=== PATIENT | female | born 1970 | race Hispanic/Latino ===

== ENCOUNTER 2021-04-16 10:30 | Emergency (ER) | payer SELFPAY ==
[2021-04-16 13:22] LABS: SARS-COV-2 RT PCR NEGATIVE (NEGATIVE)
[2021-04-16] MEDS ORDERED: METOCLOPRAMIDE 10 MG/2mL INJ ONE (13:41)
[2021-04-16] MEDS ORDERED: DIPHENHYDRAMINE 50 MG/ML VIAL ONE (13:42)
[2021-04-16] MEDS ORDERED: KETOROLAC 30 MG/ML INJ ONE (13:42)
[2021-04-16] MEDS ORDERED: NA CHLORIDE 0.9% 1,000 ML ONE (13:42)
--- NOTE | 2021-04-16 14:13 | EDPHYS ---
Physician Documentation [facility] Name: Rosa Isela Resendiz Age: 50 yrs Sex: Female : 1970 Arrival Date: 04/16/2021 Time: 10:32 Bed 10 Private MD: ED Physician Clif Barahona HPI: 04/16 13:50 This 50 yrs old Female presents to ER via Ambulatory with complaints of kb Headache. 13:50 The patient complains of pain to the forehead. The patient describes the headache as kb throbbing. Onset: The symptoms/episode began/occurred 3 day(s) ago. Associated signs and symptoms: Pertinent positives: bodyaches, cough. Severity of symptoms: At its worst the pain was moderate, in the emergency department the pain is unchanged. Headache History: The patient has had previous headaches and this one is similar to previous episodes. The symptoms are alleviated by nothing. the symptoms are aggravated by nothing. The patient has experienced similar episodes in the past. The patient has not recently seen a physician. Pt reports migraine, bodyaches and cough for 3 days. States she has a history of migraines and this one feels similar. . Historical: - Allergies: 10:58 No Known Allergies; ll1 - Home Meds: 13:44 Imitrex Oral [Active]; jh5 - PMHx: 10:58 Anxiety; Depression; Migraines; ll1 - PSHx: 10:58 section; ll1 - Immunization history:: Client reports receiving the 2nd dose of the Covid vaccine, Flu vaccine status is unknown. - Social history:: Smoking status: Patient reports the use of cigarette tobacco products, smokes one-half pack cigarettes per day. ROS: 14:07 Cardiovascular: Negative for chest pain, palpitations, and edema. kb 14:07 Constitutional: Positive for body aches, Negative for chills, fatigue, fever, malaise, poor PO intake, weight loss. 14:07 Respiratory: Positive for cough, Negative for dyspnea on exertion, hemoptysis, orthopnea, pleurisy, shortness of breath, sputum production, wheezing. 14:07 Neuro: Positive for headache. 14:07 All other systems are negative. Exam: 14:12 Constitutional: This is a well developed, well nourished patient who is awake, alert, kb and in no acute distress. Head/Face: Normocephalic, atraumatic. ENT: Moist Mucous membranes Cardiovascular: Regular rate and rhythm with a normal S1 and S2. No gallops, murmurs, or rubs. No pulse deficits. Respiratory: Respirations even and unlabored. No increased work of breathing. Talking in full sentences Skin: Warm, dry with normal turgor. Normal color. MS/ Extremity: Pulses equal, no cyanosis. Neurovascular intact. Full, normal range of motion. Neuro: Awake and alert, GCS 15, oriented to person, place, time, and situation. Moves all extremities. Normal gait. Psych: Awake, alert, with orientation to person, place and time. Behavior, mood, and affect are within normal limits. Vital Signs: 10:56 BP 151 / 90; Pulse 78; Resp 15; Temp 97.8; Pulse Ox 100% ; Weight 72.57 kg; Height 5 ll3 ft. 0 in. (152.40 cm); Pain 10/10; 12:32 BP 137 / 81; Pulse 64; Resp 16; Pulse Ox 100% on R/A; ll3 13:40 BP 132 / 80; Pulse 64; Resp 15; Pulse Ox 100% on R/A; ll3 10:56 Body Mass Index 31.25 (72.57 kg, 152.40 cm) ll3 Wilkinson Coma Score: 14:09 Eye Response: spontaneous(4). Verbal Response: oriented(5). Motor Response: obeys kb commands(6). Total: 15. MDM: 11:01 Patient medically screened. kb 14:09 Data reviewed: vital signs, nurses notes. Counseling: I had a detailed discussion with tomas the patient and/or guardian regarding: the historical points, exam findings, and any diagnostic results supporting the discharge/admit diagnosis, lab results, the need for outpatient follow up, a family practitioner, to return to the emergency department if symptoms worsen or persist or if there are any questions or concerns that arise at home. 04/16 11:04 Order name: COVID-19/FLU A+B (Document "Date of Onset" if Symptomatic); Complete Time: kb 13:23 04/16 11:26 Order name: Labs - recollect needed: recollect covid, specimen not labeled; Complete bd Time: 12:24 04/16 13:21 Order name: IV Start; Complete Time: 13:28 kb Administered Medications: 13:48 Drug: NS 0.9% 1000 ml Route: IV; Rate: 1000 ml; Site: right antecubital; ll3 13:50 Drug: Benadryl (diphenhydrAMINE) 12.5 mg Route: IVP; Site: right antecubital; ll3 13:52 Drug: Ketorolac 15 mg Route: IVP; Site: right antecubital; ll3 13:53 Drug: Reglan (metoCLOPramide) 10 mg Route: IVP; Site: right antecubital; ll3 Disposition: 15:27 Co-signature as Attending Physician, Clif Barahona MD I agree with the assessment and rn plan of care. Attestation: The patient's history, exam findings, diagnostics, and a summary of any interventions or procedures was reviewed in detail with Venecia LAMBERT. Chart complete. Disposition Summary: 04/16/21 14:12 Discharge Ordered Location: Home kb Condition: Stable kb Diagnosis - Migraine without aura, not intractable kb Followup: kb - With: Emergency Department - When: As needed - Reason: Worsening of condition Followup: kb - With: Private Physician - When: 2 - 3 days - Reason: Recheck today's complaints, Continuance of care, Re-evaluation by your physician Discharge Instructions: - Discharge Summary Sheet kb - Migraine Headache, [id number] kb Forms: - Medication Reconciliation Form kb - Thank You Letter kb - Antibiotic Education kb - Prescription Opioid Use kb Signatures: Dispatcher [employer] EDVenecia Smith FNP-C FNP-Bushra Quinonez Roman, MD MD rn Lewis, Lynsay RN RN ll1 Altagracia Song RN RN jh5 Freddie Tsang RN RN ll3
--- NOTE | 2021-04-16 14:13 | ER ---
Nurse's Notes [facility] Name: Rosa Isela Resendiz Age: 50 yrs Sex: Female : 1970 Arrival Date: 04/16/2021 Time: 10:32 Bed 10 Private MD: Diagnosis: Migraine without aura, not intractable Presentation: 04/16 10:56 Chief complaint: Patient states: KEYS, body aches, cough for 3 days. Coworkers have ll1 covid. Coronavirus screen: Vaccine status: Patient reports receiving the 2nd dose of the covid vaccine. Client denies travel out of the [place] in the last 14 days. congestion, cough unrelated to allergies, fatigue, headache, muscle pain, nausea, Client presents with at least one sign or symptom that may indicate coronavirus-19. Standard/surgical mask placed on the client. Ebola Screen: Patient denies travel to an Ebola-affected area in the 21 days before illness onset. Initial Sepsis Screen: Does the patient meet any 2 criteria? No. Patient's initial sepsis screen is negative. Does the patient have a suspected source of infection? Yes: Productive cough/pneumonia. Risk Assessment: Do you want to hurt yourself or someone else? Patient reports no desire to harm self or others. Onset of symptoms was April 14, 2021. 10:56 Method Of Arrival: Ambulatory ll1 10:56 Acuity: MITCH 4 ll1 Triage Assessment: 12:24 Headache History: The patient has had previous headaches and this one is similar to ll3 previous episodes. General: Appears in no apparent distress. uncomfortable, Behavior is calm, cooperative, anxious. Pain: Complains of pain in Whole body Pain began 2-3 days ago. Also complains of nausea, sleeplessness. Historical: - Allergies: 10:58 No Known Allergies; ll1 - Home Meds: 13:44 Imitrex Oral [Active]; jh5 - PMHx: 10:58 Anxiety; Depression; Migraines; ll1 - PSHx: 10:58 section; ll1 - Immunization history:: Client reports receiving the 2nd dose of the Covid vaccine, Flu vaccine status is unknown. - Social history:: Smoking status: Patient reports the use of cigarette tobacco products, smokes one-half pack cigarettes per day. Screenin:02 Abuse screen: Denies threats or abuse. Nutritional screening: No deficits noted. ll3 Tuberculosis screening: No symptoms or risk factors identified. 13:44 Fall Risk None identified. 5 Assessment: 10:56 General: See triage. ll3 11:02 Pain: Complains of pain in Whole body Pain currently is 10 out of 10 on a pain scale. ll3 Neuro: Level of Consciousness is awake, alert, obeys commands, Oriented to person, place, time, situation, Gait is steady, Speech is normal. Respiratory: Respiratory effort is even, unlabored, Respiratory pattern is regular, symmetrical. Derm: Skin is pink, warm \T\ dry. 12:24 Reassessment: Patient appears in no apparent distress at this time. No changes from ll3 previously documented assessment. Patient and/or family updated on plan of care and expected duration. Pain level reassessed. Patient is alert, oriented x 3, equal unlabored respirations, skin warm/dry/pink. 13:30 Reassessment: Patient appears in no apparent distress at this time. No changes from ll3 previously documented assessment. Patient and/or family updated on plan of care and expected duration. Pain level reassessed. Patient is alert, oriented x 3, equal unlabored respirations, skin warm/dry/pink. Vital Signs: 10:56 BP 151 / 90; Pulse 78; Resp 15; Temp 97.8; Pulse Ox 100% ; Weight 72.57 kg; Height 5 ll3 ft. 0 in. (152.40 cm); Pain 10/10; 12:32 BP 137 / 81; Pulse 64; Resp 16; Pulse Ox 100% on R/A; ll3 13:40 BP 132 / 80; Pulse 64; Resp 15; Pulse Ox 100% on R/A; ll3 10:56 Body Mass Index 31.25 (72.57 kg, 152.40 cm) ll3 Maryann Coma Score: 14:09 Eye Response: spontaneous(4). Verbal Response: oriented(5). Motor Response: obeys kb commands(6). Total: 15. ED Course: 10:32 Patient arrived in ED. mr 10:58 Triage completed. ll1 10:59 Arm band placed on. ll1 11:01 Freddie Tsang RN is Primary Nurse. ll3 11:01 Venecia Kaba FNP-C [facility]. kb 11:01 Clif Barahona MD is Attending Physician. kb 11:02 Patient has correct armband on for positive identification. Bed in low position. Call ll3 light in reach. 13:44 Inserted saline lock: 20 gauge in right antecubital area, using aseptic technique. [facility] 13:44 No provider procedures requiring assistance completed. 5 Administered Medications: 13:48 Drug: NS 0.9% 1000 ml Route: IV; Rate: 1000 ml; Site: right antecubital; ll3 13:50 Drug: Benadryl (diphenhydrAMINE) 12.5 mg Route: IVP; Site: right antecubital; ll3 13:52 Drug: Ketorolac 15 mg Route: IVP; Site: right antecubital; ll3 13:53 Drug: Reglan (metoCLOPramide) 10 mg Route: IVP; Site: right antecubital; ll3 Outcome: 14:12 Discharge ordered by MD. kb 14:21 Patient left the ED. [facility] Signatures: Venecia Kaba, PETRA PAGE-La Olsen mr Carlos Kuhn, GARCIA RN ll1 Altagracia Song, GARCIA RN 5 Freddie Tsang, GARCIA RN ll3 Corrections: (The following items were deleted from the chart) 11:32 10:56 Resp 18bpm; Temp 97.8F; 72.57 kg; Height 5 ft. 0 in.; BMI: 31.2; Pain 10/10; ll1 ll3
[2021-04-16 14:57] VITALS: TEMP 97.8; O2SAT 100
[2021-04-16 15:01] VITALS: BP 132/80
== END 2021-04-16 14:21 | disposition home or self-care (01) ==
LOC: ER 10:30
DX: G43.009 Migraine without aura, not intractable, without status migrainosus (principal); Z20.822 Contact with and (suspected) exposure to COVID-19
CPT/HCPCS: 0240U; 96374; 96375; 99283; J1200; J2765; J7030

== ENCOUNTER 2022-03-05 12:02 | Emergency (ER) | payer SELFPAY ==
[2022-03-05] MEDS ORDERED: KETOROLAC 30 MG/ML INJ ONE (12:26)
[2022-03-05] MEDS ORDERED: HYDROCODONE/APAP 10/325 TAB ONE (13:24)
--- NOTE | 2022-03-05 13:40 | RAD REPORT ---
EXAM DESCRIPTION: RAD - Femur Right - 03/05/2022 1:18 pm CLINICAL HISTORY: PAIN COMPARISON: No comparisons FINDINGS: Soft tissue prominence is seen along the lateral thigh. No fracture or dislocation.
--- NOTE | 2022-03-05 13:56 | EDPHYS ---
Physician Documentation [facility] Name: Rosa Isela Resendiz Age: 51 yrs Sex: Female : 1970 Arrival Date: 03/05/2022 Time: 12:05 Bed 10 Private MD: ED Physician Lucio Colindres HPI: 03/05 13:54 This 51 yrs old Female presents to ER via Ambulatory with complaints of Leg kb Pain. 13:54 The patient presents with pain. The complaints affect the lateral aspect of right kb thigh. Context: The problem was sustained at home, the patient can fully bear weight, the patient is able to ambulate. Onset: The symptoms/episode began/occurred 3 day(s) ago. Modifying factors: The symptoms are alleviated by nothing. the symptoms are aggravated by weight bearing. Associated signs and symptoms: The patient has no apparent associated signs or symptoms. Treatment prior to arrival includes: no previous treatment. Severity of symptoms: At their worst the symptoms were mild, moderate, in the emergency department the symptoms are unchanged. The patient has not experienced similar symptoms in the past. The patient has not recently seen a physician. Pt reports she was getting up from the couch on Friday evening and felt a pull/spasm in right thigh. Reports pain with ambulation since then. Denies tenderness, does not hurt at rest. 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 - Social history:: Smoking status: Patient reports the use of cigarette tobacco products, smokes one-half pack cigarettes per day, Patient/guardian denies using alcohol. ROS: 13:53 Constitutional: Negative for fever, chills, and weight loss. kb 13:53 MS/extremity: Positive for pain, of the lateral aspect of right thigh. 13:53 All other systems are negative. Exam: 13:52 Constitutional: This is a well developed, well nourished patient who is awake, alert, kb and in no acute distress. Head/Face: Normocephalic, atraumatic. ENT: Moist Mucous membranes Cardiovascular: Regular rate and rhythm with a normal S1 and S2. No gallops, murmurs, or rubs. No pulse deficits. Respiratory: Respirations even and unlabored. No increased work of breathing. Talking in full sentences Abdomen/GI: Soft, non-tender. No distention Skin: Warm, dry with normal turgor. Normal color. Neuro: Awake and alert, GCS 15, oriented to person, place, time, and situation. Moves all extremities. Normal gait. Psych: Awake, alert, with orientation to person, place and time. Behavior, mood, and affect are within normal limits. 13:52 Musculoskeletal/extremity: Extremities: grossly normal except: noted in the lateral aspect of right thigh: pain, ROM: intact in all extremities, Circulation is intact in all extremities. Sensation intact. Weight bearing: able to fully bear weight. Vital Signs: 12:12 BP 181 / 99; Pulse 89; Resp 18; Temp 98.6(O); Pulse Ox 99% on R/A; Weight 72.57 kg; ld1 Height 5 ft. 0 in. (152.40 cm); Pain 8/10; 12:30 BP 147 / 83; Pulse 83; Resp 18; Pulse Ox 100% on R/A; em6 13:29 BP 136 / 82; Pulse 63; Resp 18; Pulse Ox 98% on R/A; em6 14:09 BP 132 / 86; Pulse 66; Resp 18; Pulse Ox 98% on R/A; em6 12:12 Body Mass Index 31.25 (72.57 kg, 152.40 cm) ld1 MDM: 12:06 Patient medically screened. kb 13:52 Data reviewed: vital signs, nurses notes. Data interpreted: Pulse oximetry: on room air kb is 98 %. Interpretation: normal. Counseling: I had a detailed discussion with the patient and/or guardian regarding: the historical points, exam findings, and any diagnostic results supporting the discharge/admit diagnosis, radiology results, the need for outpatient follow up, a family practitioner, to return to the emergency department if symptoms worsen or persist or if there are any questions or concerns that arise at home. 03/05 12:13 Order name: Femur Right XRAY; Complete Time: 13:45 kb Administered Medications: 12:30 Drug: Ketorolac 30 mg Route: IM; Site: right deltoid; em6 13:00 Follow up: Response: No adverse reaction em6 13:29 Drug: [place] (HYDROcodone-acetaminophen) 10 mg-325 mg 1 tabs Route: PO; em6 14:00 Follow up: Response: No adverse reaction em6 Disposition: 18:04 Co-signature as Attending Physician, Venecia LAMBERT Attestation: The patient's [facility] history, exam findings, diagnostics, and a summary of any interventions or procedures was reviewed in detail with Venecia LAMBERT. Disposition Summary: 03/05/22 13:55 Discharge Ordered Location: Home kb Condition: Stable kb Diagnosis - Strain of other specified muscles, fascia and tendons at thigh level, right thigh kb Followup: kb - With: Emergency Department - When: As needed - Reason: Worsening of condition Followup: kb - With: Private Physician - When: 2 - 3 days - Reason: Recheck today's complaints, Continuance of care, Re-evaluation by your physician Discharge Instructions: - Discharge Summary Sheet kb - Hamstring Strain kb - Muscle Strain, [id number] kb Forms: - Medication Reconciliation Form kb - Thank You Letter kb - Antibiotic Education kb - Prescription Opioid Use kb Prescriptions: - Ibuprofen 600 mg Oral Tablet - take 1 tablet by ORAL route every 6 hours As needed take with food; 30 tablet; kb Refills: 0, Product Selection Permitted - Cyclobenzaprine 10 mg Oral Tablet - take 1 tablet by ORAL route every 8 hours As needed; 15 tablet; Refills: 0, kb Product Selection Permitted Signatures: Dispatcher [employer] Venecia Leonardo FNP-C FNP-Ckb Dibbern, Lauren, RN RN ld1 Lucio Colindres MD MD jr11 Pearl Casas RN RN em6
--- NOTE | 2022-03-05 13:56 | ER ---
Nurse's Notes [facility] Name: Rosa Isela Resendiz Age: 51 yrs Sex: Female : 1970 Arrival Date: 03/05/2022 Time: 12:05 Bed 10 Private MD: Diagnosis: Strain of other specified muscles, fascia and tendons at thigh level, right thigh Presentation: 03/05 12:11 Chief complaint: Chief complaint: Patient states: Lateral right thigh pain - started ld1 Friday while getting up from sofa. 12:12 Coronavirus screen: At this time, the client does not indicate any symptoms associated ld1 with coronavirus-19. Ebola Screen: No symptoms or risks identified at this time. Initial Sepsis Screen: Does the patient meet any 2 criteria? No. Patient's initial sepsis screen is negative. Does the patient have a suspected source of infection? No. Patient's initial sepsis screen is negative. Risk Assessment: Do you want to hurt yourself or someone else? Patient reports no desire to harm self or others. Onset of symptoms was March 05, 2022 at 12:13. 12:12 Method Of Arrival: Ambulatory ld1 12:12 Acuity: MITCH 4 ld1 Triage Assessment: 12:13 General: Appears in no apparent distress. comfortable, Behavior is calm, cooperative, ld1 appropriate for age. Pain: Complains of pain in right leg Pain does not radiate. Pain currently is 8 out of 10 on a pain scale. Quality of pain is described as throbbing. EENT: No signs and/or symptoms were reported regarding the EENT system. Neuro: Level of Consciousness is awake, alert, obeys commands, Oriented to person, place, time, situation. Cardiovascular: Capillary refill < 3 seconds Patient's skin is warm and dry. Respiratory: Airway is patent Respiratory effort is even, unlabored. GI: Abdomen is flat, non-distended. : No signs and/or symptoms were reported regarding the genitourinary system. Derm: No signs and/or symptoms reported regarding the dermatologic system. Musculoskeletal: No signs and/or symptoms reported regarding the musculoskeletal system. 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 - Social history:: Smoking status: Patient reports the use of cigarette tobacco products, smokes one-half pack cigarettes per day, Patient/guardian denies using alcohol. Screenin:31 Abuse screen: Denies threats or abuse. Nutritional screening: No deficits noted. em6 Tuberculosis screening: No symptoms or risk factors identified. Fall Risk Total Canales Fall Scale indicates No Risk (0-24 pts). Assessment: 12:30 General: Appears uncomfortable, Behavior is cooperative. Pain: Complains of pain in em6 right leg Pain does not radiate. Pain currently is 9 out of 10 on a pain scale. Quality of pain is described as sharp, shooting. Neuro: Level of Consciousness is awake, alert, obeys commands, Oriented to person, place, time, situation. Cardiovascular: Patient's skin is warm and dry. Respiratory: Airway is patent Respiratory effort is even, unlabored, Respiratory pattern is regular, symmetrical. GI: No signs and/or symptoms were reported involving the gastrointestinal system. : No signs and/or symptoms were reported regarding the genitourinary system. EENT: No signs and/or symptoms were reported regarding the EENT system. Derm: No signs and/or symptoms reported regarding the dermatologic system. Musculoskeletal: Circulation, motion, and sensation intact. Capillary refill < 3 seconds, Range of motion: intact in all extremities. 13:29 Reassessment: patient is stating pain in the right upper leg. 8 out of 10. provider em6 notified. new order given. Reassessment: Patient and/or family updated on plan of care and expected duration. Pain level reassessed. Neuro: Level of Consciousness is awake, alert, obeys commands, Oriented to person, place, time, situation. Respiratory: Airway is patent Respiratory effort is even, unlabored, Respiratory pattern is regular, symmetrical. 14:10 Reassessment: Patient is alert, oriented x 3, equal unlabored respirations, skin em6 warm/dry/pink. Patient states symptoms have improved. Vital Signs: 12:12 BP 181 / 99; Pulse 89; Resp 18; Temp 98.6(O); Pulse Ox 99% on R/A; Weight 72.57 kg; ld1 Height 5 ft. 0 in. (152.40 cm); Pain 8/10; 12:30 BP 147 / 83; Pulse 83; Resp 18; Pulse Ox 100% on R/A; em6 13:29 BP 136 / 82; Pulse 63; Resp 18; Pulse Ox 98% on R/A; em6 14:09 BP 132 / 86; Pulse 66; Resp 18; Pulse Ox 98% on R/A; em6 12:12 Body Mass Index 31.25 (72.57 kg, 152.40 cm) ld1 ED Course: 12:05 Patient arrived in ED. rg4 12:06 Venecia Kaba [facility]NP-C [facility]. kb 12:06 Lucio Colindres MD is Attending Physician. kb 12:13 Triage completed. ld1 12:13 Arm band placed on right wrist. ld1 12:20 Pearl Casas RN is Primary Nurse. em6 12:31 Bed in low position. Call light in reach. Side rails up X 1. Pulse ox on. NIBP on. Warm em6 blanket given. 13:20 Femur Right XRAY In Process Unspecified. EDMS 14:10 No provider procedures requiring assistance completed. Patient did not have IV access em6 during this emergency room visit. Administered Medications: 12:30 Drug: Ketorolac 30 mg Route: IM; Site: right deltoid; em6 13:00 Follow up: Response: No adverse reaction em6 13:29 Drug: [place] (HYDROcodone-acetaminophen) 10 mg-325 mg 1 tabs Route: PO; em6 14:00 Follow up: Response: No adverse reaction em6 Medication: 14:10 VIS not applicable for this client. em6 Outcome: 13:55 Discharge ordered by . kb 14:10 Discharged to home ambulatory. em6 14:10 Condition: stable 14:10 Discharge instructions given to patient, Instructed on discharge instructions, follow up and referral plans. medication usage, Demonstrated understanding of instructions, follow-up care, medications, Prescriptions given X 2. 14:11 Patient left the ED. em6 Signatures: Dispatcher [employer] EDMS Venecia Kaba FNP-C FNP-Ckb Garcia, Rubi rg4 Kristal Shi RN RN ld1 Augusto, Pearl, RN RN em6 Corrections: (The following items were deleted from the chart) : 12:11 Chief complaint: ld1 ld1
[2022-03-05 14:15] VITALS: TEMP 98.6
[2022-03-05 14:18] VITALS: O2SAT 98
[2022-03-05 14:19] VITALS: BP 132/86
== END 2022-03-05 14:11 | disposition home or self-care (01) ==
LOC: ER 12:02
DX: S76.811A Strain of other specified muscles, fascia and tendons at thigh level, right thigh, initial encounter (principal); F17.210 Nicotine dependence, cigarettes, uncomplicated
CPT/HCPCS: 96372; 99284

== ENCOUNTER 2022-11-18 13:00 | Emergency (ER) | payer SELFPAY ==
--- OUTSIDE RECORDS SUMMARY | 2022-11-18 13:04 | XMS REPORT | Continuity of Care Document ---
:1970 Author Organization [facility] t Address [address] [facility] [address] [place] [address] Care Team Providers Name Role Phone Unavailable Unavailable Unavailable Problems This patient has no known problems. Allergies, Adverse Reactions, Alerts This patient has no known allergies or adverse reactions. Medications This patient has no known medications. Procedures This patient has no known procedures. Encounters Start End Encounter Admission Attending Care Care Encounter Source Date/Time Date/Time Type Type Clinicians Facility Department ID 2022-08-01 2022-08-01 Outpatient [facility] [id number] [id number] Stewart 08:23:43 08:23:43 0427 [facility] 2022-07-31 2022-07-31 Outpatient [facility] [id number] Stewart 17:15:10 17:15:10 [id number] Bart 2022-07-11 2022-07-11 Outpatient [facility] [id number] [id number] Stewart 13:51:19 13:51:19 [id number] Bart 2022-07-10 2022-07-10 Outpatient [facility] [id number] [id number] Stewart 10:06:12 10:06:12 [id number] Bart Results Test Description Test Time Test Comments Results Result Comments Source PROLACTIN 2022-08-07 13:13:12 Test Item Value Reference Range Interpretation Comme nts PROLACTIN (test code = 18.3 NG/ML 5.0-37.0 NOTE : Methodology is Janina Mary Grace 2800) Electrochemilum inescence Immunoassay (ECLIA). Values obtained with different assays/manufact urers cannot be used interchangeably . Results should not be used as sole ba sis to establish the presence or abs ence of malignancy. FSH + LH [id number] 13:13:12 Test Item Value Reference Range Interpretation Comments FOLLICLE STIM HORMONE 44.5 IU/L SEE BELOW EXPECTED (test code = 2700) VALUES FO R FSH FOR FEMALES >17 YEA RS FOLLICU LAR 3.5-12.5 IU/L M ID-CYCLE PEAK 4.7-21.5 I U/L LUTEAL PHASE 1. 7-7.7 IU/L POSTMENOPA USAL 25.8-134.8 IU/L LUTEINIZING HORMONE 34.1 IU/L SEE BELOW EXPECTED (test code = 2776) VALUES FO R LH FOR FEMALES >17 YEA RS MALES FEMALES >=18 YEARS 1.8- 8.6 IU/L FOLLICULAR 2.4- 12.6 IU/L MID-CYCLE PEAK 14.0-95.6 IU/L LUTEAL PHASE 1.0-11.4 IU/L POSTMENOPAUSAL 7.7-58.5 IU/L TSH, THIRD [id number] 13:13:12 Test Item Value Reference Range Interpretation Comments TSH, THIRD GENERATION (test code 1.100 UIU/ML 0.400-4.100 = 2821) [id number] 13:13:12 Test Item Value Reference Range Interpretation Comments PROGESTERONE (test 0.41 NG/ML SEE BELOW E XPECTED code = 2790) VALUES FOR PROGESTERONE MALE . . . . . . . . . . . . . . . . N G/ML <0.20 FEMALE FOLLICULAR PHAS E . . . . . . . . . NG/ ML <0.90 OVULATION . . . . . . . . . . . . NG/ML <12.00 TOREY TEAL PHASE . . . . . . . . . . . NG/ML 1.8 3-23.90 POSTMENOPAUSAL . . . . . . . . . . N G/ML <0.20 1ST TRIMESTER. . . . . . . . . . . NG/ML 11.00-44.30 2ND TRIMESTER. . . . . . . . . . . NG/ML 25.40-83.30 3RD TRIMESTER. . . . . . . . . . . NG/ML 58.70-214.00 * [facility] has important pathology staff changes effecti ve 06/05/2022. New pathology staff will provide uninter rupted, excellent patie nt care and clinical consultation. S ee URL: [email or web address]. UNLES S OTHERWISE INDIC ATED, ALL TESTING PER FORMED AT [facility] [place]. [address] [place] [address] MATT RODRIGUEZ DIRECTOR: Kush SALDANA HUGH NUMBER [id number] CAP ACCREDITATION N O. [id number] 13:13:12 Test Item Value Reference Range Interpretation Comments ESTRADIOL (test 26.8 PG/ML SEE BELOW Note: Value s in the range of code = 2505) 17-25 PG/ML may demonstrate increased impre cision. Clinical correl ation is recommended. EXPECTED VALUES FOR ESTR ADIOL FOR FEMALES >=18 YE ARS FOLLICULAR . . . . . . . . . . . . . PG/ML 1 2.4-233.0 OVULATION. . . . . . . . . . . . . . PG/ML 4 1.0-398.0 LUTEAL PHASE . . . . . . . . . . . . PG/ML 2 2.3-341.0 POSTMENOPAUSAL SUPPLEMENTED/NO N-SUPP . PG/ML <138.0/<20.0 NO TE: TO DETERMINE TESSA L VS. SUBNORMAL ESTRA DIOL IN POSTMENOPAUSAL FEMALES, CONSIDER ULTRAS ENSITIVE ESTRADIOL ([facility] ORDER CODE 5678). METHODOL OGY IS JANINA MARY GRACE ELECTROCH EMILUMINESCENT IMMUNOASSAY WIT H A LIMIT OF DETECTION OF 17 PG/ML. [id number] 08:51:28 Test Item Value Reference Range Interpretation Comments TESTOSTERONE (test 31 NG/DL See_Comment NOTE: TO VERONICA code = 2830) TESTOSTERONE SAY SENSITIVITY IS 12 NG/DL. TO DETER MINE NORMAL VS. SUBN ORMAL TESTOSTERONE IN CHILDREN AND WO MEN, CONSIDER TESTIN G WITH ULTRASENSITIVE TESTOSTERONE. [Automated mess age] The system which ge nerated this result tra nsmitted reference range : <=55. The reference r socrates was not used to int erpret this result as normal/abnormal . COMPREHENSIVE METABOLIC [id number] 06:16:02 Test Item Value Reference Range Interpretation Comments GLUCOSE (test code = 95 MG/DL 70-99 2217) BUN (test code = 13 MG/DL 6-20 2207) CREATININE (test 0.67 MG/DL 0.60-1.30 code = 2213) eGFR (2020 CKD-EPI) 104 >60 (test code = 85964) ML/MIN/1.73 CALC BUN/CREAT (test 19 RATIO 6-28 code = 2235) SODIUM (test code = 142 MEQ/L 136-555 1350) POTASSIUM (test code 4.4 MEQ/L 3.5-5.4 = 2227) CHLORIDE (test code 109 MEQ/L 95-107 H = 2214) CARBON DIOXIDE (test 21 MEQ/L 19-31 code = 2205) CALCIUM (test code = 9.6 MG/DL 8.5-10.5 2208) PROTEIN, TOTAL (test 7.1 G/DL 6.1-8.3 code = 2228) ALBUMIN (test code = 4.4 G/DL 3.5-5.2 2200) CALC GLOBULIN (test 2.7 G/DL 1.9-3.7 code = 2239) CALC A/G RATIO (test 1.6 RATIO 1.0-2.6 code = 2233) BILIRUBIN, TOTAL 0.5 MG/DL See_Comment [Automated message] (test code = 2206) The syste m which generated this result transmit janine reference range : <=1.2. The refe rence range was not u sed to interpret th is result as normal/abnormal . ALKALINE PHOSPHATASE 101 U/L 40-133 (test code = 2203) AST (test code = 15 U/L 9-40 2217) ALT (test code = 13 U/L 5-40 2218) CBC W/AUTO DIFF WITH [id number] 04:27:02 Test Item Value Reference Range Interpretation Comments WBC (test code = 9.4 K/UL 3.5-11.0 1001) RBC (test code = 5.06 M/UL 3.80-5.40 1002) HEMOGLOBIN (test code 15.3 G/DL 11.5-15.5 = 1003) HEMATOCRIT (test code 43.7 % 34.0-45.0 = 1004) MCV (test code = 86.4 fL 80.0-99.0 1005) MCH (test code = 30.2 PG 25.0-33.0 1006) MCHC (test code = 35.0 G/DL 31.0-36.0 1007) RDW (test code = 13.5 % 11.5-15.0 1038) NEUTROPHILS (test 75.9 % code = 1008) LYMPHOCYTES (test 17.6 % code = 1010) MONOCYTES (test code 5.1 % = 1011) EOSINOPHILS (test 0.5 % code = 1012) BASOPHILS (test code 0.7 % = 1013) IMMATURE GRANULOCYTES 0.2 % (test code = 1036) NUCLEATED RBCS (test 0.0 /100 WBC'S See_Comment [Aut omated code = 1065) message] The sy stem which generated this result transmitted reference range : 0.0. The refere nce range was not u sed to interpret th is result as normal/abnormal . PLATELET COUNT (test 335 K/UL 130-400 code = 1015) ABSOLUTE NEUTROPHILS 7.16 K/UL 1.50-7.50 (test code = 1066) ABSOLUTE LYMPHOCYTES 1.66 K/UL 1.00-4.00 (test code = 1067) ABSOLUTE MONOCYTES 0.48 K/UL 0.20-1.00 (test code = 1068) ABSOLUTE EOSINOPHILS 0.05 K/UL 0.00-0.50 (test code = 1040) ABSOLUTE BASOPHILS 0.07 K/UL 0.00-0.20 (test code = 1069) ABS IMMATURE 0.02 K/UL 0.00-0.10 GRANULOCYTES (test code = 1020) ABS NUCLEATED RBCS 0.00 K/UL 0.00-0.11 (test code = 27221) PAP TEST, THINPREP, [id number] 09:01:34 Test Item Value Reference Range Interpretation Comments SOURCE: (test Cervical/Endo code = 8001) cervical SLIDES: (test 2 code = 8011) LMP: (test code = 06/24/2022 8021) SPECIMEN (NOTE) Unsatisfactory (see ADEQUACY: (test Interpretati on). code = 64642) INTERPRETATION: UNSATISFACTOR A (test code = Y; SEE BELOW --------- 10467) ------- UNSATISFACT ORY FOR EVALUATION Insufficient ce llularity (Charges delete d, please resubmit)------ --------- --------- --------- ------- OTHER COMMENTS: (NOTE) Glacial acet ic acid (test code = added due to bl ood/mucus 8081) in specimen. SENIOR VICE PRESIDENT & GENERAL COUNSEL: Denny (test code = MADAI Mejia( 8101) CP) IAC QC TECHNOLOGIST: MARIA GUADALUPE Huang (test code = GONZÁLEZ,CT(ASCP) 8111) LOCATION: (test (NOTE) Specimens pr ocessed and code = 77998) interpreted at [facility], [address] [place] [id number], , CLIA: [id number] CPT: (test code = (NOTE) 42042 UNLE SS OTHERWISE 8140) INDICATED, COMP UTER AIDED AND CYTOTECHNOLOGIS T SCREENING PERFO RMED. The Pap test is a s creening test with an in herent, but low probabi lity of error. Your pat ient should be remin ded to consult you imm ediately if she experien kimberly any suspicious sign s or symptoms, regar dless of her Pap test re sult. An alternate repor t format containing imag es or consolidated pr ior Pap history is adi tinoco as applicable. HPV HIGH RISK WITH GENOTYPE, [id number] 13:22:33 Test Item Value Reference Range Interpretation Comments HPV HIGH RISK INTERP NEGATIVE NEGATIVE (test code = 44343) HPV 16 (test code = NEGATIVE 77229) HPV 18 (test code = NEGATIVE 59003) HPV, HR, OTHER NEGATIVE Testing meth odology is GENOTYPES (test code real-ti me PCR utilizing = 47946) hydrolysis prob es with the [employer] 4800 system. The anna t individually de tects genotypes 16 an d 18, as well as the oth er 12 high risk types (31,33,35,39,45 ,51,52,56 ,58,59,66,68). The expected result is negative. A neg ative result does not rule out the presence of HPV not included in the genotype set, a low leve l of infection or sp ecimen sampling error. [facility] has important p athology staff changes e ffective 06/05/2022. New pathology staff will provide uninter rupted, excellent patie nt care and clinical consultation. S ee URL: [email or web address]. UNLESS OTHERWISE INDICATED, ALL TESTING PERFORMED AT [facility] [address] [place] [address], [place] [address] LABORATORY DIRE CTOR: ROBIN VASQUEZ M.D. [place] NUMBER [id number] [facility] [id number]
[2022-11-18] MEDS ORDERED: NA CHLORIDE 0.9% 100 ML ONE (13:52)
[2022-11-18] MEDS ORDERED: NA CHLORIDE 0.9% 1,000 ML ONE (13:52)
[2022-11-18] MEDS ORDERED: DIPHENHYDRAMINE 50 MG/ML VIAL ONE (13:52)
[2022-11-18] MEDS ORDERED: KETOROLAC 30 MG/ML INJ ONE (13:52)
[2022-11-18] MEDS ORDERED: METOCLOPRAMIDE 10 MG/2mL INJ ONE (13:54)
--- NOTE | 2022-11-18 14:06 | RAD REPORT ---
EXAM DESCRIPTION: CT - Head Brain Wo Cont - 11/18/2022 1:59 pm CLINICAL HISTORY: HEADACHE Headache, drowsiness COMPARISON: <Comparisons> TECHNIQUE: All CT scans are performed using dose optimization technique as appropriate and may inclu de automated exposure control or mA/KV adjustment according to patient size. FINDINGS: No intracranial hemorrhage, hydrocephalus or extra-axial fluid collection.No areas of brai n edema or evidence of midline shift. The paranasal sinuses and mastoids are clear. The calvarium is intact. IMPRESSION: No acute intracranial abnormality.
--- NOTE | 2022-11-18 15:17 | ER ---
Nurse's Notes [facility] Name: Rosa Isela Resendiz Age: 52 yrs Sex: Female : 1970 Arrival Date: 11/18/2022 Time: 13:00 Bed 12 Private MD: Diagnosis: Migraine without aura, not intractable;Nausea with vomiting, unspecified Presentation: 11/18 13:09 Chief complaint: Patient states: Migraine headache that has been coming and going x 2 me1 weeks, also reports dizziness, sensitivity to light and sound, N/V, and intermittent numbness to fingers of L hand. Hx of migraines but is not currently under the care of a neurologist. Coronavirus screen: Vaccine status: Patient reports receiving the 2nd dose of the covid vaccine. Ebola Screen: No symptoms or risks identified at this time. Initial Sepsis Screen: Does the patient meet any 2 criteria? No. Patient's initial sepsis screen is negative. Does the patient have a suspected source of infection? No. Patient's initial sepsis screen is negative. Risk Assessment: Do you want to hurt yourself or someone else? Patient reports no desire to harm self or others. Onset of symptoms was November 18, 2022. 13:09 Method Of Arrival: Ambulatory oh1 13:09 Acuity: MITCH 2 me1 Triage Assessment: 13:50 Headache History: The patient has had previous headaches and this one is similar to mb9 previous episodes. General: Appears in no apparent distress. General: Behavior is calm, cooperative. Pain: Also complains of nausea, photophobia. STRIPPER COLOR: 13:12 LMP N/A - Post-menopause me1 Historical: - Allergies: 13:12 No Known Allergies; me1 - PMHx: 13:12 angina pectoris; Anxiety; Depression; Migraines; me1 - PSHx: 13:12 section; me1 - Immunization history:: Adult Immunizations unknown. - Social history:: Smoking status: Patient reports the use of cigarette tobacco products, smokes one-half pack cigarettes per day. Screenin:50 [facility] ED Fall Risk Assessment (Adult) History of falling in the last 3 months, mb9 including since admission No falls in past 3 months (0 pts) Confusion or Disorientation No (0 pts) Intoxicated or Sedated No (0 pts) Impaired Gait No (0 pts) Mobility Assist Device Used No (0 pt) Altered Elimination No (0 pt) Score/Fall Risk Level 0 - 2 = Low Risk Oriented to surroundings, Maintained a safe environment, Educated pt \T\ family on fall prevention, incl call for assistance when getting out of bed. Abuse screen: Denies threats or abuse. Nutritional screening: No deficits noted. Tuberculosis screening: No symptoms or risk factors identified. Assessment: 13:48 General: Appears in no apparent distress. Behavior is calm, cooperative. Pain: mb9 Complains of pain in head Pain does not radiate. Pain currently is 10 out of 10 on a pain scale. Quality of pain is described as throbbing, Pain began 2 weeks Is intermittent, Aggravated by light and noise. Neuro: [place] Agitation-Sedation Scale (RASS): 0 - Alert and Calm Level of Consciousness is awake, alert, obeys commands, Oriented to person, place, time, situation, Appropriate for age Speech is normal, Facial symmetry appears normal, Pupils are PERRLA, Reports headache occipital area, paresthesias in left hand since 2 weeks ago. Cardiovascular: Patient's skin is warm and dry. Respiratory: Airway is patent Respiratory effort is even, unlabored, Respiratory pattern is regular, symmetrical. GI: Reports nausea, vomiting. : No signs and/or symptoms were reported regarding the genitourinary system. Derm: Skin is pink, warm \T\ dry. Musculoskeletal: Range of motion: intact in all extremities. 14:39 Reassessment: Patient and/or family updated on plan of care and expected duration. Pain mb9 level reassessed. Patient is alert, oriented x 3, equal unlabored respirations, skin warm/dry/pink. Patient states feeling better. Patient states symptoms have improved. Vital Signs: 13:09 BP 179 / 106; Pulse 79; Resp 18; Temp 98.2; Pulse Ox 100% ; Weight 72.57 kg; Height 5 me1 ft. 0 in. ; Pain 10/10; 14:40 BP 135 / 81; Pulse 62; Resp 18; Pulse Ox 100% on R/A; mb9 13:09 Body Mass Index 31.25 (72.57 kg, 152.4 cm) me1 13:09 Pain Scale: Adult oh1 ED Course: 13:03 Patient arrived in ED. im 13:09 Kash Mosqueda DO is Attending Physician. ms3 13:11 Triage completed. me1 13:12 Arm band placed on. me1 13:23 La Jolly, RN is Primary Nurse. mb9 13:35 Inserted saline lock: 20 gauge in right antecubital area, using aseptic technique. ph Blood collected. 13:51 Placed in gown. Bed in low position. Call light in reach. Side rails up X 1. Client mb9 placed on continuous cardiac and pulse oximetry monitoring. NIBP monitoring applied. 14:01 CT Head Brain wo Cont In Process Unspecified. EDMS 14:16 No provider procedures requiring assistance completed. mb9 15:15 Cody Martins MD is Referral Physician. ms3 15:20 IV discontinued, intact, bleeding controlled, No redness/swelling at site. Pressure mb9 dressing applied. Administered Medications: 14:00 Drug: metoCLOPramide IVP 10 mg Route: IVP; Site: right antecubital; mb9 15:20 Follow up: Response: No adverse reaction mb9 14:00 Drug: NS 0.9% IV 1000 ml Route: IV; Rate: 1000 ml; Site: right antecubital; mb9 15:20 Follow up: Response: No adverse reaction; IV Status: Completed infusion mb9 14:03 Drug: diphenhydrAMINE IVP 25 mg Route: IVP; Site: right antecubital; mb9 15:19 Follow up: Response: No adverse reaction mb9 14:06 Drug: Ketorolac IVP 10 mg 10 mg Route: IVP; Site: right antecubital; mb9 15:19 Follow up: Response: No adverse reaction mb9 Medication: 13:50 VIS not applicable for this client. mb9 Outcome: 15:16 Discharge ordered by . ms3 15:20 Discharged to home ambulatory. mb9 15:20 Condition: stable 15:20 Discharge instructions given to patient, Instructed on discharge instructions, follow up and referral plans. Demonstrated understanding of instructions, follow-up care. 15:29 Patient left the ED. mb9 Signatures: Dispatcher [employer] Nathalia Haskins RN RN Kash Lopez DO DO ms3 La Jolly, RN RN mb9 Tammi Wright Michelle RN RN me1
--- NOTE | 2022-11-18 15:17 | EDPHYS ---
Physician Documentation [facility] Name: Rosa Isela Resendiz Age: 52 yrs Sex: Female : 1970 Arrival Date: 11/18/2022 Time: 13:00 Bed 12 Private MD: ED Physician Kash Mosqueda HPI: 11/18 14:45 This 52 yrs old Female presents to ER via Ambulatory with complaints of ms3 Headache. 14:45 52-year-old female with past medical history of angina, anxiety, depression, migraines ms3 presents for headache that has been waxing and waning for 2 weeks. Patient rates her head a 10/10. Patient states pain is worse with light. Patient states she notices an improvement in her symptoms with cold in quiet places. Patient endorses nausea and vomiting. 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 - Social history:: Smoking status: Patient reports the use of cigarette tobacco products, smokes one-half pack cigarettes per day. ROS: 14:45 Constitutional: Negative for fever, and chills. Neck: Negative for injury, pain, and ms3 swelling, Cardiovascular: Negative for chest pain, and palpitations. Respiratory: Negative for shortness of breath, cough, wheezing, and pleuritic chest pain, Abdomen/GI: Negative for abdominal pain, nausea, vomiting, diarrhea, and constipation, Skin: Negative for injury, rash, and discoloration. 14:45 All other systems are negative. Exam: 14:45 Constitutional: This is a well developed, well nourished patient who is awake, alert, ms3 and in no acute distress. Head/Face: Normocephalic, atraumatic. Chest/axilla: Normal chest wall appearance and motion. Nontender with no deformity. Cardiovascular: Regular rate and rhythm with a normal S1 and S2. No gallops, murmurs, or rubs. Normal PMI, no JVD. No pulse deficits. Respiratory: Lungs have equal breath sounds bilaterally, clear to auscultation and percussion. No rales, rhonchi or wheezes noted. No increased work of breathing, no retractions or nasal flaring. Abdomen/GI: Soft, non-tender, with normal bowel sounds. No distension or tympany. No guarding or rebound. No evidence of tenderness throughout. Skin: Warm, dry with normal turgor. Normal color with no rashes, no lesions, and no evidence of cellulitis. MS/ Extremity: Pulses equal, no cyanosis. Neurovascular intact. Full, normal range of motion. Neuro: Awake and alert, GCS 15, oriented to person, place, time, and situation. Cranial nerves II-XII grossly intact. Motor strength 5/5 in all extremities. Sensory grossly intact. Cerebellar exam normal. Normal gait. Vital Signs: 13:09 BP 179 / 106; Pulse 79; Resp 18; Temp 98.2; Pulse Ox 100% ; Weight 72.57 kg; Height 5 me1 ft. 0 in. ; Pain 10/10; 14:40 BP 135 / 81; Pulse 62; Resp 18; Pulse Ox 100% on R/A; mb9 13:09 Body Mass Index 31.25 (72.57 kg, 152.4 cm) me1 13:09 Pain Scale: Adult me1 MDM: 13:37 Patient medically screened. ms3 14:45 Differential diagnosis: intracerebral hemorrhage, migraine, subarachnoid bleed, ms3 subdural hematoma. Data reviewed: vital signs, nurses notes, lab test result(s), radiologic studies, and as a result, I will discharge patient. I considered the following discharge prescriptions or medication management in the emergency department Medications were administered in the Emergency Department. See MAR. Independent interpretation of the following test(s) in the Emergency Department CT Scan: My interpretation is CT Brain without contrast images reviewed and do not reveal ICH. Care significantly affected by the following Social Determinants of Health: Poor access to healthcare and/or lack of insurance. Counseling: I had a detailed discussion with the patient and/or guardian regarding: the historical points, exam findings, and any diagnostic results supporting the discharge/admit diagnosis, radiology results, the need for outpatient follow up, to return to the emergency department if symptoms worsen or persist or if there are any questions or concerns that arise at home. Response to treatment: the patient's symptoms have markedly improved after treatment, and as a result, I will discharge patient. Special discussion: I discussed with the patient/guardian in detail that at this point there is no indication for admission to the hospital. It is understood, however, that if the symptoms persist or worsen the patient needs to return immediately for re-evaluation. ED course: Discussed CT scan with patient. Patient states she has marked relief after medications. Patient to follow-up with Dr. Clemente in 2 to 3 days. Patient understands agrees with plan. All questions were answered. Return precautions discussed include worsening symptoms, or any other concerns. 11/18 13:37 Order name: CT Head Brain wo Cont; Complete Time: 14:20 ms3 Administered Medications: 14:00 Drug: metoCLOPramide IVP 10 mg Route: IVP; Site: right antecubital; mb9 15:20 Follow up: Response: No adverse reaction mb9 14:00 Drug: NS 0.9% IV 1000 ml Route: IV; Rate: 1000 ml; Site: right antecubital; mb9 15:20 Follow up: Response: No adverse reaction; IV Status: Completed infusion mb9 14:03 Drug: diphenhydrAMINE IVP 25 mg Route: IVP; Site: right antecubital; mb9 15:19 Follow up: Response: No adverse reaction mb9 14:06 Drug: Ketorolac IVP 10 mg 10 mg Route: IVP; Site: right antecubital; mb9 15:19 Follow up: Response: No adverse reaction mb9 Disposition Summary: 11/18/22 15:16 Discharge Ordered Location: Home ms3 Condition: Stable ms3 Diagnosis - Migraine without aura, not intractable ms3 - Nausea with vomiting, unspecified ms3 Followup: ms3 - With: Cody Martins MD - When: 2 - 3 days - Reason: Recheck today's complaints Discharge Instructions: - Discharge Summary Sheet ms3 - Migraine Headache ms3 - Nausea and Vomiting, Adult ms3 Forms: - Medication Reconciliation Form ms3 - Thank You Letter ms3 - Antibiotic Education ms3 - Prescription Opioid Use ms3 - Patient Portal Instructions ms3 - Leadership Thank You Letter ms3 - Work release form mb9 Signatures: Dispatcher [employer] EDKash Franco DO DO ms3 La Jolly RN RN mb9 Alyssa Solis RN RN me1
[2022-11-18 16:11] VITALS: TEMP 98.2; O2SAT 100
[2022-11-18 16:12] VITALS: BP 135/81
== END 2022-11-18 15:29 | disposition home or self-care (01) ==
LOC: ER 13:00
DX: G43.009 Migraine without aura, not intractable, without status migrainosus (principal); R11.2 Nausea with vomiting, unspecified; F17.210 Nicotine dependence, cigarettes, uncomplicated
CPT/HCPCS: 70450; 96361; 96374; 96375; 99284; J1200; J2765; J7030

== ENCOUNTER 2023-09-28 15:53 | Emergency (ER) | payer SELFPAY ==
--- OUTSIDE RECORDS SUMMARY | 2023-09-28 15:56 | XMS REPORT | Continuity of Care Document ---
Author Name Unknown Address [address] [facility] [address] [place] [address] [facility] thconnect Address [address] [facility] [address] [place] [address] Care Team Providers Care Automation Qa Analyst Name Role Phone Unavailable Unavailable Unavailable Encounters Start Date/Time End Date/Time Encounter Type Admission Type Attending Clinicians Care Facility Care Department Encounter ID Source 2022-08-01 08:23:43 2022-08-01 08:23:43 Outpatient [facility] [id number] Stewart Arriaga 2022-07-31 17:15:10 2022-07-31 17:15:10 Outpatient [facility] [id number] Stewart Arriaga 2022-07-11 13:51:19 2022-07-11 13:51:19 Outpatient [facility] [id number] Stewart Arriaga 2022-07-10 10:06:12 2022-07-10 10:06:12 Outpatient [facility] [id number] Stewart Arriaga Results Test Description Test Time Test Comments Results Result Co mments Source [id number] 13:13:12* Test Item Value Reference Range Interpretation Comme nts PROLACTIN (test code = 2800) 18.3 NG/ML 5.0-37.0 NOTE: Methodolog y is Serg Mary Grace Electrochemiluminescence Immunoassay (ECLIA). Values obtained with different assays/manufacturers cannot be used interchangeably. Results should not be used as sole basis to establish the presence or absence of malignancy. FSH + LH [id number] 13:13:12* Test Item Value Reference Range Interpretation Comme nts FOLLICLE STIM HORMONE (test code = 2700) 44.5 IU/L SEE BELOW EXPEC TRIXIE VALUES FOR FSH FOR FEMALES >17 YEARS FOLLICULAR 3.5-12.5 IU/L MID-CYCLE PEAK 4.7-21.5 IU/L LUTEAL PHASE 1.7-7.7 IU/L POSTMENOPAUSAL 25.8-134.8 IU/L LUTEINIZING HORMONE (test code = 2776) 34.1 IU/L SEE BELOW EXPEC TRIXIE VALUES FOR LH FOR FEMALES >17 YEARS MALES FEMALES >=18 YEARS 1.8-8.6 IU/L FOLLICULAR 2.4-12.6 IU/L MID-CYCLE PEAK 14.0-95.6 IU/L LUTEAL PHASE 1.0-11.4 IU/L POSTMENOPAUSAL 7.7-58.5 IU/L TSH, THIRD [id number] 13:13:12* Test Item Value Reference Range Interpretation [facility] TSH, THIRD GENERATION (test code = 2821) 1.100 UIU/ML 0.400-4.100 [id number] 13:13:12* Test Item Value Reference Range Interpretation [facility] PROGESTERONE (test code = 2790) 0.41 NG/ML SEE BELOW EXPECTED VALUES FOR PROGESTERONE MALE . . . . . . . . . . . . . . . . NG/ML <0.20 FEMALE FOLLICULAR PHASE . . . . . . . . . NG/ML <0.90 OVULATION . . . . . . . . . . . . NG/ML <12.00 LUTEAL PHASE . . . . . . . . . . . NG/ML 1.83-23.90 POSTMENOPAUSAL . . . . . . . . . . NG/ML <0.20 1ST TRIMESTER. . . . . . . . . . . NG/ML 11.00-44.30 2ND TRIMESTER. . . . . . . . . . . NG/ML 25.40-83.30 3RD TRIMESTER. . . . . . . . . . . NG/ML 58.70-214.00 [facility] has important pathology staff changes effective 06/05/2022. New pathology staff will provide uninterrupted, excellent patient care and clinical consultation. See URL: [email or web address]. UNLESS OTHERWISE INDICATED, ALL TESTING PERFORMED AT [facility] [address] [place] [id number] QUILLER RUNNER: ROBIN MAXWELL M.D. [place] NUMBER [id number] [place] [id number] 08:51:28* Test Item Value Reference Range Interpretation Comme nts TESTOSTERONE (test code = 2830) 31 NG/DL See_Comment NOTE: TOTAL TESTOSTERONE ASSAY SENSITIVITY IS 12 NG/DL. TO DETERMINE NORMAL VS. SUBNORMAL TESTOSTERONE IN CHILDREN AND WOMEN, CONSIDER TESTING WITH ULTRASENSITIVE TESTOSTERONE. [Automated message] The system which generated this result transmitted reference range: <=55. The reference range was not used to interpret this result as normal/abnormal. COMPREHENSIVE METABOLIC [id number] 06:16:02* Test Item Value Reference Range Interpretation Comme nts GLUCOSE (test code = 2217) 95 MG/DL 70-99 BUN (test code = 2208) 13 MG/DL 6-20 CREATININE (test code = 2214) 0.67 MG/DL 0.60-1.30 eGFR (2020 CKD-EPI) (test code = 87513) 104 ML/MIN/1.73 >60 CALC BUN/CREAT (test code = 2235) 19 RATIO 6-28 SODIUM (test code = 2231) 142 MEQ/L 133-146 POTASSIUM (test code = 2228) 4.4 MEQ/L 3.5-5.4 CHLORIDE (test code = 2215) 109 MEQ/L 95-107 H CARBON DIOXIDE (test code = 2206) 21 MEQ/L 19-31 CALCIUM (test code = 2209) 9.6 MG/DL 8.5-10.5 PROTEIN, TOTAL (test code = 2229) 7.1 G/DL 6.1-8.3 ALBUMIN (test code = 2201) 4.4 G/DL 3.5-5.2 CALC GLOBULIN (test code = 2240) 2.7 G/DL 1.9-3.7 CALC A/G RATIO (test code = 2234) 1.6 RATIO 1.0-2.6 BILIRUBIN, TOTAL (test code = 2207) 0.5 MG/DL See_Comment [Automated me ssage] The system which generated this result transmitted reference range: <=1.2. The reference range was not used to interpret this result as normal/abnormal. ALKALINE PHOSPHATASE (test code = 2204) 101 U/L 40-133 AST (test code = 2218) 15 U/L 9-40 ALT (test code = 2219) 13 U/L 5-40 CBC W/AUTO DIFF WITH [id number] 04:27:02* Test Item Value Reference Range Interpretation Comme nts WBC (test code = 1001) 9.4 K/UL 3.5-11.0 RBC (test code = 1002) 5.06 M/UL 3.80-5.40 HEMOGLOBIN (test code = 1003) 15.3 G/DL 11.5-15.5 HEMATOCRIT (test code = 1004) 43.7 % 34.0-45.0 MCV (test code = 1005) 86.4 fL 80.0-99.0 MCH (test code = 1006) 30.2 PG 25.0-33.0 MCHC (test code = 1007) 35.0 G/DL 31.0-36.0 RDW (test code = 1038) 13.5 % 11.5-15.0 NEUTROPHILS (test code = 1008) 75.9 % LYMPHOCYTES (test code = 1010) 17.6 % MONOCYTES (test code = 1011) 5.1 % EOSINOPHILS (test code = 1012) 0.5 % BASOPHILS (test code = 1013) 0.7 % IMMATURE GRANULOCYTES (test code = 1036) 0.2 % NUCLEATED RBCS (test code = 1065) 0.0 /100 WBC'S See_Comment [Automated [employer]omat[employer] ge] The system which generated this result transmitted reference range: 0.0. The reference range was not used to interpret this result as normal/abnormal. PLATELET COUNT (test code = 1015) 335 K/UL 130-400 ABSOLUTE NEUTROPHILS (test code = 1066) 7.16 K/UL 1.50-7.50 ABSOLUTE LYMPHOCYTES (test code = 1067) 1.66 K/UL 1.00-4.00 ABSOLUTE MONOCYTES (test code = 1068) 0.48 K/UL 0.20-1.00 ABSOLUTE EOSINOPHILS (test code = 1040) 0.05 K/UL 0.00-0.50 ABSOLUTE BASOPHILS (test code = 1069) 0.07 K/UL 0.00-0.20 ABS IMMATURE GRANULOCYTES (test code = 1020) 0.02 K/UL 0.00-0.10 ABS NUCLEATED RBCS (test code = 52485) 0.00 K/UL 0.00-0.11 PAP TEST, THINPREP, [id number] 09:01:34* Test Item Value Reference Range Interpretation Comme nts SOURCE: (test code = 8001) Cervical/Endo cervical SLIDES: (test code = 8011) 2 LMP: (test code = 8021) 06/24/2022 SPECIMEN ADEQUACY: (test code = 74830) (NOTE) Unsatisfactory ( see Interpretation). INTERPRETATION: (test code = 26741) UNSATISFACTOR Y; SEE BELOW A ---- UNSATISFACTORY FOR EVALUATION Insufficient cellularity (Charges deleted, please resubmit) ------- OTHER COMMENTS: (test code = 8081) (NOTE) Glacial acetic a alfonso added due to blood/mucus in specimen. LAND PLANNER: (test code = 8101) MADAI Wilson( CP) [facility] QC TECHNOLOGIST: (test code = 8111) MADAI INFANTE(ASCP) LOCATION: (test code = 47915) (NOTE) Specimens proces sed and interpreted at [facility], [address] [place] [address], , CLIA: [id number] CPT: (test code = 8140) (NOTE) 534[address] UNLESS OTH ERWISE INDICATED, COMPUTER AIDED AND LAND PLANNER SCREENING PERFORMED. The Pap test is a screening test with an inherent, but low probability of error. Your patient should be reminded to consult you immediately if she experiences any suspicious signs or symptoms, regardless of her Pap test result. An alternate report format containing images or consolidated prior Pap history is available as applicable. HPV HIGH RISK WITH GENOTYPE, [id number] 13:22:33* Test Item Value Reference Range Interpretation Comme nts HPV HIGH RISK INTERP (test code = 81324) NEGATIVE NEGATIVE HPV 16 (test code = 69583) NEGATIVE HPV 18 (test code = 68893) NEGATIVE HPV, HR, OTHER GENOTYPES (test code = 63422) NEGATIVE Testing methodol ogy is real-time PCR utilizing hydrolysis probes with the Data[employer] 4800 system. The test individually detects genotypes 16 and 18, as well as the other 12 high risk types (31,33,35,39,45,51,52,56 ,58,59,66,68). The expected result is negative. A negative result does not rule out the presence of HPV not included in the genotype set, a low level of infection or specimen sampling error. [facility] has important pathology staff changes effective 06/05/2022. New pathology staff will provide uninterrupted, excellent patient care and clinical consultation. See URL: [email or web address]. UNLESS OTHERWISE INDICATED, ALL TESTING PERFORMED AT [facility] [address] [place] [address] QUILLER RUNNER: ROBIN MAXWELL M.D. [place] NUMBER [id number] [place]. [id number]
[2023-09-28] MEDS ORDERED: ONDANSETRON 4 MG/2 ML VIAL ONE (17:21)
[2023-09-28] MEDS ORDERED: NA CHLORIDE 0.9% 1,000 ML ONE (17:22)
[2023-09-28] MEDS ORDERED: MORPHINE 4 MG/ML SYR ONE (17:22)
[2023-09-28 17:44] LABS: Absolute Basophils 0.1 K/uL (0-0.5); Absolute Eosinophils 0.1 K/uL (0-0.5); Absolute Lymphocytes (CBC) 2.5 K/uL (0.7-4.9); Absolute Monocytes 0.5 K/uL (0.1-1.3); Absolute Neutrophil 6.9 K/uL (1.8-8.0); Basophils % 0.8 % (0-1.3); Eosinophils % 1.1 % (0-4.4); Hematocrit 41.4 % (36.0-45.0); Hemoglobin 14.2 g/dL (12.0-15.0); Lymphocytes % 24.6 % (15.3-44.8); MCH 30.4 pg (27.0-35.0); MCHC 34.3 g/dL (32.0-36.0); MCV 88.7 fL (80-100); MPV 7.5 fL (7.6-11.3); Monocytes % 5.2 % (3.3-12.3); Neutrophils % 68.3 % (41.7-73.7); Platelets 337 thou/uL (152-406); RBC Red Blood Cell Count 4.66 M/uL (3.86-4.86); Red Cell Distribution Width 13.6 % (12.1-15.2)
[2023-09-28 17:59] LABS: ALT/SGPT 19 U/L (13-56); Albumin 3.2 g/dL (3.4-5.0); Albumin/Globulin Ratio 0.9 (1.1-1.8); Alkaline Phosphatase 106 U/L (45-117); Anion Gap 6.6 mEq/L (5.0-15.0); BUN Blood Urea Nitrogen 14 mg/dL (7-18); Bicarbonate 27 mEq/L (21-32); Bilirubin Total 0.3 mg/dL (0.2-1.0); Globulin 3.6 g/dL (2.3-3.5); Glomerular Filtration Rate 107 ml/min (=/>90); Glucose Level 100 mg/dL (74-106); Lipase 59 U/L (13-75); Potassium 3.6 mEq/L (3.5-5.1); Protein, Total 6.8 g/dL (6.4-8.2); Sodium Level 142 mEq/L (136-145)
[2023-09-28 18:00] LABS: Specific Gravity 1.029 (1.005-1.030); Sqamous Epithelial <5 /HPF (None Seen); Urine Bacteria None Seen /HPF (<20); Urine Bilirubin NEGATIVE (Negative); Urine Blood 2+ (Negative); Urine Clarity Turbid (Clear); Urine Color Yellow (Yellow); Urine Culture Reflex Order NOT NEEDED; Urine Glucose NEGATIVE (Negative); Urine Ketones NEGATIVE (Negative); Urine Microscopic Reflex YN ORDER UMIC; Urine Mucus 1+ /HPF (None Seen); Urine Nitrite NEGATIVE (Negative); Urine Protein TRACE (Negative); Urine RBC 21-50 /HPF (None Seen); Urine Urobilinogen Normal (Normal); Urine WBC <5 /HPF (<5)
[2023-09-28 18:21] LABS: AST/SGOT < 10 U/L (15-37)
--- NOTE | 2023-09-28 18:30 | RAD REPORT ---
EXAM DESCRIPTION: US - Transvaginal Study Probe - 09/28/2023 5:55 pm CLINICAL HISTORY: Abdominal distention;Vaginal bleeding COMPARISON: No comparisons FINDINGS: The uterus is normal in size, shape and echotexture. The uterus measures 8.1 cm. Possible intramural fibroid measuring 2.1 cm The endometrial stripe measures 2 mm, within normal limit Both ovaries are normal in size, shape and echotexture. The right ovary measures 3.3 cc. The left o vary measures 3.5 cc. No ovarian or parovarian lesions. No adnexal masses. Normal Doppler blood flow was demonstrated to both ovaries. No significant pelvic ascites. IMPRESSION: 1. The endometrial stripe is within normal limits. 2. Possible intramural fibroid measuring 2 cm. 3. Bilateral ovarian blood flow.
--- NOTE | 2023-09-28 19:05 | RAD REPORT ---
EXAM DESCRIPTION: CTAbdomen Pelvis W Contrast - 09/28/2023 6:46 pm CLINICAL HISTORY: ABD PAIN COMPARISON: No comparisons TECHNIQUE: CT of the abdomen and pelvis was performed with IV contrast. All CT scans are performed using dose optimization technique as appropriate and may include automated exposure control or mA/KV adjustment according to patient size. FINDINGS: Lower chest: No acute abnormality. Liver: No acute abnormality or suspicious lesions. Hepatic steatosis. Biliary: Cholecystectomy. Mild extrahepatic biliary duct dilatation which is likely related to the po stcholecystectomy state. Stomach: No significant focal abnormality. Duodenum: No significant focal abnormality. Pancreas: 7 mm x 4 mm cystic lesion at the pancreatic body identified. No pancreatic ductal dilatatio n. Spleen: No significant abnormality. Adrenal: No suspicious lesions. Kidney/ureter: No hydronephrosis. No renal calculi. Too small to characterize and/or benign appearing renal lesions are noted. Retroperitoneum: No retroperitoneal adenopathy. Vascular: No aneurysm. Bowel: Normal appendix. Diverticulosis. Subtle stranding along the proximal sigmoid. . Peritoneum: No ascites or free air. Bladder: Grossly unremarkable. Reproductive: No adnexal masses. Bones: No acute fracture. Other: n/a IMPRESSION: 1. Mild acute diverticulitis at the proximal sigmoid. No perforation or abscess. No sandeep l obstruction. 2. 7 x 4 mm cystic lesion at the pancreatic body statistically of little clinical significance. It co uld represent a pancreatic cyst, pseudocyst, or cystic lesion such as an intraductal papillary mucino us neoplasm (IPMN). Recommend 12 month follow-up MRCP or contrast enhanced CT to ensure stability.
--- NOTE | 2023-09-28 19:11 | EDPHYS ---
Physician Documentation [facility] Name: Rosa Isela Resendiz Age: 53 yrs Sex: Female : 1970 Arrival Date: 09/28/2023 Time: 15:53 Bed 13 Private MD: ED Physician Dennys Neely HPI: 09/27 17:57 This 53 yrs old Female presents to ER via Ambulatory with complaints of sb4 Diarrhea, Vaginal Bleeding, Bloating, Abdominal Problem - pressure. 17:57 Patient states that she has been experiencing lower abdominal pain, abdominal swelling, sb4 diarrhea. States yesterday she passed a very large blood clot. She states that she has not had a menstrual cycle in over a year and has been going through menopause. States her wheel roller diagnosed her with follicular cyst but told her that they were benign and nothing to worry about. She is concerned now because she felt that pain and is having abdominal swelling. Historical: - Allergies: 16:02 No Known Allergies; ll1 - PMHx: 16:02 angina pectoris; Anxiety; Depression; Migraines; ll1 - PSHx: 16:02 section; ll1 - Immunization history:: Adult Immunizations up to date. - Infectious Disease History:: Denies. - Social history:: Smoking status: Patient denies any tobacco usage or history of. ROS: 17:57 Constitutional: Negative for fever, chills, and weight loss, sb4 17:57 Abdomen/GI: Positive for abdominal pain, diarrhea, abdominal distension, 17:57 : Positive for vaginal bleeding, 17:57 All other systems are negative, Exam: 17:57 Constitutional: This is a well developed, well nourished patient who is awake, alert, sb4 and in no acute distress. Head/Face: Normocephalic, atraumatic. Eyes: Extra-ocular motions intact. Periorbital areas with no swelling, redness, or edema. ENT: Mucous membranes moist. Cardiovascular: Regular rate and rhythm with a normal S1 and S2. Respiratory: Lungs have equal breath sounds bilaterally, clear to auscultation and percussion. No rales, rhonchi or wheezes noted. No increased work of breathing, no retractions or nasal flaring. Skin: Warm, dry with normal turgor. Normal color with no rashes, no lesions, and no evidence of cellulitis. MS/ Extremity: Pulses equal, no cyanosis. Neurovascular intact. Full, normal range of motion. 17:57 Abdomen/GI: Inspection: distension, that is mild, Bowel sounds: normal, Palpation: abdomen is soft and non-tender, Vital Signs: 16:08 BP 158 / 98; Pulse 82; Resp 17; Temp 98.6; Pulse Ox 100% ; Weight 72.57 kg; Height 5 ll1 ft. 0 in. ; Pain 8/10; 17:34 BP 146 / 85; Pulse 72; Resp 16; Pulse Ox 96% ; db 18:00 BP 151 / 88; Pulse 65; Resp 18; Pulse Ox 96% on R/A; db 19:31 BP 127 / 99; Pulse 70; Resp 18 S; Pulse Ox 96% on R/A; ha1 16:08 Body Mass Index 31.25 (72.57 kg, 152.4 cm) ll1 16:08 Pain Scale: Adult ll1 MDM: 16:04 Patient medically screened. sb4 19:09 Data reviewed: vital signs, nurses notes, lab test result(s), radiologic studies, and sb4 as a result, I will discharge patient. Counseling: I had a detailed discussion with the patient and/or guardian regarding the historical points, exam findings, and any diagnostic results supporting the discharge/admit diagnosis, the presence of at least one elevated blood pressure reading (>120/80) during this emergency department visit, lab results, radiology results, the need for outpatient follow up, a lap checker, to return to the emergency department if symptoms worsen or persist or if there are any questions or concerns that arise at home. 09/27 17:13 Order name: CBC with Diff; Complete Time: 17:50 sb4 09/27 17:13 Order name: CMP; Complete Time: 18:22 sb4 09/27 17:13 Order name: Lipase; Complete Time: 18:22 sb4 09/27 17:13 Order name: Urinalysis w/ reflexes; Complete Time: 18:15 sb4 09/27 17:13 Order name: CT Abd/Pelvis - IV Contrast Only; Complete Time: 19:05 sb4 09/27 17:13 Order name: Transvaginal Study (probe); Complete Time: 18:32 sb4 09/27 17:13 Order name: IV Saline Lock; Complete Time: 17:43 sb4 09/27 17:13 Order name: Labs collected and sent; Complete Time: 17:43 sb4 Administered Medications: 17:34 Drug: NS 0.9% IV 1000 ml IV at 1 bolus Per protocol; 1000 mL bolus Route: IV; Rate: 1 db bolus; Site: right antecubital; 19:30 Follow up: Response: No adverse reaction; IV Status: Completed infusion; IV Intake: ha1 1000ml 17:35 Drug: Ondansetron IVP 4 mg IVP once; over 2 minutes Route: IVP; Site: right antecubital;db 19:30 Follow up: Response: No adverse reaction ha1 17:39 Drug: morphine IVP or IV 4 mg IVP once over 4 mins Route: IVP; Infused Over: 4 mins; db Site: right antecubital; 19:30 Follow up: Response: No adverse reaction; Marked relief of symptoms; Pain is decreased; ha1 RASS: Alert and Calm (0) 19:15 Drug: Ciprofloxacin PO 500 mg PO once Route: PO; ha1 19:30 Follow up: Response: No adverse reaction ha1 19:15 Drug: metroNIDAZOLE PO 500 mg PO once Route: PO; ha1 19:30 Follow up: Response: No adverse reaction ha1 Disposition: 20:00 Co-signature as Attending Physician, Dennys Neely MD I reviewed the patient's care rt provided by the Advanced Practice Provider and agree with the diagnosis and treatment plan. Disposition Summary: 09/28/23 19:10 Discharge Ordered Notes: Location: Home sb4 Problem: new sb4 Symptoms: have improved sb4 Condition: Stable sb4 Diagnosis - Diverticulitis of large intestine without perforation or abscess without bleeding sb4 - Uterine fibroid sb4 Followup: sb4 - With: Griffin Bryant MD - When: 2 weeks - Reason: Recheck today's complaints, Re-evaluation by your physician Discharge Instructions: - Discharge Summary Sheet ll1 - Diverticulitis, [id number] sb4 - Uterine Fibroids, [id number] sb4 Forms: - Work release form ll1 - Antibiotic Education sb4 - Prescription Opioid Use sb4 - Patient Portal Instructions sb4 - Leadership Thank You Letter sb4 Prescriptions: - Flagyl 500 mg Oral Tablet - take 1 tablet ORAL route every 8 hours for 10 days; 30 tablet; Refills: 0, sb4 Product Selection Permitted - Cipro 500 mg Oral Tablet - take 1 tablet ORAL route every 12 hours for 7 days; 14 tablet; Refills: 0, sb4 Product Selection Permitted - Tramadol 50 mg Oral Tablet - take 1 tablet ORAL route every 8 hours as needed; 12 tablet; Refills: 0, sb4 Product Selection Permitted Signatures: Dispatcher [employer] Carlos Webb RN RN ll1 Radha Hodgson RN RN ha1 Tiffany Varner RN RN Mechelle Moulton PA-C PA-C sb4 Dennys Neely MD MD rt
--- NOTE | 2023-09-28 19:11 | ER ---
Nurse's Notes [facility] Name: Rosa Isela Resendiz Age: 53 yrs Sex: Female : 1970 Arrival Date: 09/28/2023 Time: 15:53 Bed 13 Private MD: Diagnosis: Diverticulitis of large intestine without perforation or abscess without bleeding;Uterine fibroid Presentation: 09/27 16:08 Chief complaint: Patient states: Bloating for 2 days. +diarrhea, pelvic pressure, ll1 vaginal bleeding since. Had anxiety attack after being fired for not going to work today. Coronavirus screen: Client denies travel out of the [place] in the last 14 days. At this time, the client does not indicate any symptoms associated with coronavirus-19. Ebola Screen: Patient denies travel to an Ebola-affected area in the 21 days before illness onset. Initial Sepsis Screen: Does the patient meet any 2 criteria? No. Patient's initial sepsis screen is negative. Does the patient have a suspected source of infection? No. Patient's initial sepsis screen is negative. Risk Assessment: Do you want to hurt yourself or someone else? Patient reports no desire to harm self or others. Onset of symptoms was September 27, 2023. 16:08 Method Of Arrival: Ambulatory ll1 16:08 Acuity: MITCH 3 ll1 Triage Assessment: 16:10 General: Appears distressed, uncomfortable, Behavior is cooperative, appropriate for ll1 age, anxious. Pain: Complains of pain in pelvis Pain currently is 8 out of 10 on a pain scale. Quality of pain is described as aching, crampy. GI: Reports lower abdominal pain, diarrhea, nausea. : Reports cramping, pain in bilateral vaginal bleeding that is with clots, moderate flow, spotty. Historical: - Allergies: 16:02 No Known Allergies; ll1 - PMHx: 16:02 angina pectoris; Anxiety; Depression; Migraines; ll1 - PSHx: 16:02 section; ll1 - Immunization history:: Adult Immunizations up to date. - Infectious Disease History:: Denies. - Social history:: Smoking status: Patient denies any tobacco usage or history of. Screenin:[address] [facility] ED Fall Risk Assessment (Adult) History of falling in the last 3 months, db including since admission No falls in past 3 months (0 pts) Confusion or Disorientation No (0 pts) Intoxicated or Sedated No (0 pts) Impaired Gait No (0 pts) Mobility Assist Device Used No (0 pt) Altered Elimination No (0 pt) Score/Fall Risk Level 0 - 2 = Low Risk Oriented to surroundings, Maintained a safe environment. Abuse screen: Denies threats or abuse. Denies injuries from another. Nutritional screening: No deficits noted. Tuberculosis screening: No symptoms or risk factors identified. Assessment: 17:35 Reassessment: Patient appears in no apparent distress at this time. Patient and/or db family updated on plan of care and expected duration. Pain level reassessed. Patient is alert, oriented x 3, equal unlabored respirations, skin warm/dry/pink. General: Appears in no apparent distress. comfortable, Behavior is calm, cooperative. Neuro: Level of Consciousness is awake, alert, obeys commands, Oriented to person, place, time, situation. Respiratory: Airway is patent Respiratory effort is even, unlabored, Respiratory pattern is regular, symmetrical. GI: Abdomen is distended, Abdomen is tender to palpation. 17:45 Reassessment: ULTRASOUND AT BEDSIDE. db 18:37 Reassessment: Patient appears in no apparent distress at this time. Patient and/or db family updated on plan of care and expected duration. Pain level reassessed. Patient is alert, oriented x 3, equal unlabored respirations, skin warm/dry/pink. Patient states feeling better. 19:31 Reassessment: Patient and/or family updated on plan of care and expected duration. Pain ha1 level reassessed. Patient is alert, oriented x 3, equal unlabored respirations, skin warm/dry/pink. Patient states feeling better. Patient states symptoms have improved. Vital Signs: 16:08 BP 158 / 98; Pulse 82; Resp 17; Temp 98.6; Pulse Ox 100% ; Weight 72.57 kg; Height 5 ll1 ft. 0 in. ; Pain 8/10; 17:34 BP 146 / 85; Pulse 72; Resp 16; Pulse Ox 96% ; db 18:00 BP 151 / 88; Pulse 65; Resp 18; Pulse Ox 96% on R/A; db 19:31 BP 127 / 99; Pulse 70; Resp 18 S; Pulse Ox 96% on R/A; ha1 16:08 Body Mass Index 31.25 (72.57 kg, 152.4 cm) ll1 16:08 Pain Scale: Adult ll1 ED Course: 15:58 Patient arrived in ED. mg5 16:02 Arm band placed on. ll1 16:04 Mechelle Keller PA-C is PHCP. sb4 16:04 Dennys Neely MD is Attending Physician. sb4 16:10 Triage completed. ll1 16:55 Patient placed in an exam room, on a stretcher. ll1 17:14 Tiffany Varner, GARCIA is Primary Nurse. db 17:35 Initial lab(s) drawn, by me, sent to lab. Inserted saline lock: 20 gauge in right db antecubital area, using aseptic technique. Blood collected. 17:56 Transvaginal Study (probe) In Process Unspecified. EDMS 18:[address] db 18:48 CT Abd/Pelvis - IV Contrast Only In Process Unspecified. EDMS 19:00 Patient has correct armband on for positive identification. Placed in gown. Bed in low ha1 position. Call light in reach. Side rails up X 1. Adult w/ patient. 19:10 Griffin Bryant MD is Referral Physician. sb4 19:31 No provider procedures requiring assistance completed. IV discontinued, intact, ha1 bleeding controlled, No redness/swelling at site. Pressure dressing applied. 19:32 Provided Education on: follow ups . ha1 Administered Medications: 17:34 Drug: NS 0.9% IV 1000 ml IV at 1 bolus Per protocol; 1000 mL bolus Route: IV; Rate: 1 db bolus; Site: right antecubital; 19:30 Follow up: Response: No adverse reaction; IV Status: Completed infusion; IV Intake: ha1 1000ml 17:35 Drug: Ondansetron IVP 4 mg IVP once; over 2 minutes Route: IVP; Site: right antecubital;db 19:30 Follow up: Response: No adverse reaction ha1 17:39 Drug: morphine IVP or IV 4 mg IVP once over 4 mins Route: IVP; Infused Over: 4 mins; db Site: right antecubital; 19:30 Follow up: Response: No adverse reaction; Marked relief of symptoms; Pain is decreased; ha1 RASS: Alert and Calm (0) 19:15 Drug: Ciprofloxacin PO 500 mg PO once Route: PO; ha1 19:30 Follow up: Response: No adverse reaction ha1 19:15 Drug: metroNIDAZOLE PO 500 mg PO once Route: PO; ha1 19:30 Follow up: Response: No adverse reaction ha1 Medication: 18:37 VIS not applicable for this client. db Intake: 19:30 IV: 1000ml; Total: 1000ml. ha1 Outcome: 19:10 Discharge ordered by MD. sb4 19:31 Discharged to home ambulatory, with family, ha1 19:31 Condition: stable 19:31 Discharge instructions given to patient, family, Instructed on discharge instructions, follow up and referral plans. medication usage, Demonstrated understanding of instructions, follow-up care, medications, Prescriptions given X 3, 19:32 Patient left the ED. ha1 Signatures: Dispatcher [employer] EDMS Carlos Kuhn RN RN 1 Radha Hodgson RN RN 1 Tiffany Varner RN RN db Brown, Sophia, PA-C PA-C sb4 Bety Natarajan mg5 Corrections: (The following items were deleted from the chart) 16:20 16:08 Chief complaint: Patient states: Bloating for 2 days. +diarrhea, pelvic pressure, ll1 vaginal bleeding since. Had anxiety after being fired for not going to work today. ll1 16:56 16:35 Patient placed in an exam room, on a stretcher, ll1 ll1
[2023-09-28] MEDS ORDERED: metroNIDAZOLE 500 MG TABLET ONE (19:18)
[2023-09-28] MEDS ORDERED: CIPROFLOXACIN HCL 500 MG TAB ONE (19:18)
== END 2023-09-28 19:32 | disposition home or self-care (01) ==
LOC: ER 15:53
DX: K57.32 Diverticulitis of large intestine without perforation or abscess without bleeding (principal); D25.9 Leiomyoma of uterus, unspecified
CPT/HCPCS: 36415; 74177; 76830; 80053; 81001; 83690; 85025; 96361; 96374; 96375; 99285; J2405; J7030; Q9967

== ENCOUNTER 2024-06-23 10:55 | Emergency (ER) | payer SELFPAY ==
--- OUTSIDE RECORDS SUMMARY | 2024-06-23 10:58 | XMS REPORT | Continuity of Care Document ---
Author Name Unknown Address [address] [facility]. [address] [place] [address] [facility] [place] Address [address] [facility] Tommy. [address] [place] [address] Care Team Providers Care Waste Duster Name Role Phone PCP, PATIENT DOES NOT HAVE A Primary Care Physic florentino SARA Redd Attending Clinician SARA Ervin Attending Clinician Sara Ervin DO Attending Clinician SARA BALBUENA Admitting Clinician Deepak cardoso Payelsa Payer Name Policy Type Policy Number Effective Date Expirati on Date Source [facility] [id number] 2024-02-06 00:00:00 2024-04-06 00:00:00 Allergies, Adverse Reactions, Alerts Allergy Name Allergy Type Status Severity Reaction(s) Onset Date Inactive Date Treating Clinician Comments Source NO KNOWN ALLERGIE S Drug Class Active [facility] Social History Social Habit Start Date Stop Date Quantity Comments Source Sexual orientation [facility] Sex assigned at 1970 00:00:00 1970 00:00:00 [facility] Smoking Status Start Date Stop Date Source Tobacco smoking consumption unknown [facility] Medications Ordered Medication Name Filled Medication Name Start Date Stop Date Current Medication? Ordering Clinician Indication Dosage Frequency Signature (SIG) Comments Components Source sulfamethox azole-trime thoprim (BACTRIM DS) 800-160 mg per tablet 1 tablet 2023-04 16:45: 00 03-22 16:40 :00 No 1{tbl} 1 tablet, Oral, ONCE, 1 dose, On Fri03/22/24 at 1045, SIN, Reason for Anti-Infec tive: Documented Infection, Documented Infection Site: Urine, Duration of Therapy: Once (ED) [facility] fentanyl PF (SUBLIMAZE (PF)) injection 50 mcg 2023-04 16:30: 00 03-22 16:40 :00 No 50ug 50 mcg, Slow IV Push, ONCE, 1 dose, On Fri03/22/24 at 1030, Routine [facility] iopamidol (ISOVUE 370-500 mL) injection 85 mL 2023-04 15:45: 00 03-22 15:45 :00 No [id number] 85mL 85 mL, Intravenou s, ONCE, 1 dose, On Fri03/22/24 at 0945, Routine [facility] ketorolac (TORADOL) injection 30 mg 2023-04 14:30: 00 03-22 13:53 :00 No 30mg 30 mg, Slow IV Push, ONCE, 1 dose, On Fri03/22/24 at 0830, Routine [facility] ondansetron (ZOFRAN (PF)) injection 4 mg 2023-04 13:45: 00 03-22 13:57 :00 No 4mg 4 mg, Slow IV Push, ONCE, 1 dose, On Fri03/22/24 at 0745, Administer over 2-5 Minutes, 2 mL [facility] sulfamethox azole-trime thoprim 800-160 mg per tablet 2023-04 00:00: 00 Yes [id number] 1{tbl} Take 1 tablet by mouth every 12 (twelve) hours. [facility] Vital Signs Vital Name Observation Time Observation Value Comments S ourcyril Systolic blood pressure 2024-03-22 17:00:00 143 mm[Hg] [facility] Diastolic blood pressure 2024-03-22 17:00:00 107 mm[Hg] [facility] Heart rate 2024-03-22 17:00:00 57 /min [facility] Oxygen saturation in Arterial blood by Pulse oximetry 2024-03-22 17:00:00 98 /min [facility] Body temperature 2024-03-22 16:53:00 37.11 Brianne [facility] Respiratory rate 2024-03-22 16:53:00 14 /min [facility] Body height 2024-03-22 13:29:00 154.9 cm [facility] Body weight 2024-03-22 13:29:00 74.844 kg [facility] BMI 2024-03-22 13:29:00 31.18 kg/m2 [facility] Procedures Procedure Date / Time Performed Performing Clinicia n Source CT ABDOMEN PELVIS W CONTRAST 2024-03-22 14:50:36 Sara Balbuena [facility] LIPASE 2024-03-22 13:47:00 [facility] 2024-03-22 13:47:00 Sara Balbuena [facility] COMP. METABOLIC PANEL (20753) 2024-03-22 13:47:00 Sara Balbuena [facility] CBC WITH DIFF 2024-03-22 13:47:00 [facility] UR[facility]IS 2024-03-22 13:47:00 Sara Balbuena [facility] Encounters Start Date/Time End Date/Time Encounter Type Admission Type Attending [facility] Care Department Encounter ID Source 2024-03-22 07:30:00 2024-03-22 11:15:00 Emergency X [facility] BAL[facility]UENA [facility] [id number] 2024-03-22 07:30:00 2024-03-22 11:15:00 Emergency [facility] Balbu[facility] [id number] [facility] 2022-08-01 08:23:43 2022-08-01 08:23:43 Outpatient SFA SFA [id number] Stewart Arriaga 2022-07-31 17:15:10 2022-07-31 17:15:10 Outpatient [facility] [id number] Stewart Arriaga 2022-07-11 13:51:19 2022-07-11 13:51:19 Outpatient [facility] [id number] Stewart Arriaga 2022-07-10 10:06:12 2022-07-10 10:06:12 Outpatient [facility] [id number] Stewart Ariraga Results Test Description Test Time Test Comments Results Resul t Comments Source CT ABDOMEN PELVIS W CONTRAST 2024-03-07 6 16:03:43 EXAM: CT ABDOMEN PELVIS W CONTRAST HISTORY: 53 years -old Female with Abdominal pain, acute, nonlocalized COMPARISON: None. TECHNIQUE: Contiguous axial imaging from the level of the lung basesthrough the proximal thighs was performed after intravenous contrastadministrati on. Coronal and sagittal reconstructions were obtained. ? FINDINGS: LOWER THORAX: Minimal bibasilar subsegmental atelectasis.. Nocardiomegaly.. . LIVER: No focal hepatic lesions. Normal contour. GALLBLADDER AND BILIARY TREE: No intra or extrahepatic biliary ductaldilation. SPLEEN: Unremarkable. PANCREAS: No ductal dilatation or masses ADRENAL GLANDS: No adrenal lesions. KIDNEYS: A 1.1 cm hypodense lesion on the left and 1 cm hypodense lesion onthe right is noted and represent cysts. No hydronephrosis, stones, ormasses. Homogeneous and symmetrical enhancement. GI TRACT: Pancolonic extensive colonic diverticulosis withoutdiverticuliti s. Mild wall thickening of sigmoid colon, probably sequela ofhypertrophy from diverticulosis. No dilation.The appendix is normal. PERITONEUM AND RETROPERITONEUM: No free air or fluid collection. LYMPH NODES: No intra-abdominal or pelvic lymph node enlargement. PELVIS/BLADDER: Bladder is underdistended and cannot be completelyevaluated. Heterogenous appearing uterus could be secondary to timing ofthe contrast from heterogeneous enhancement. Irregular hyperdensity in theendocervical canal extending to the vagina. It measures 1.5 cm intransverse dimension and 6 cm in length. Bilateral ovaries areunremarkable. VESSELS: Mild atherosclerotic disease of aorta and iliac branches. BONES AND SOFT TISSUES: No suspicious lytic or sclerotic bony lesions. [facility] 14:31:54* Test Item Value Reference Range Interpretation Comme nts NA (test code = 6774606420) 141 mmol/L 135-145 K (test code = 7864510697) 3.9 mmol/L 3.5-5.0 CL (test code = 8340302278) 111 mmol/L 98-108 H CO2 TOTAL (test code = 4176628670) 25 mmol/L 23-31 AGAP (test code = 4442337378) 5 2-16 BUN (test code = 2755758567) 17 mg/dL 7-23 GLUCOSE (test code = 3087670600) 105 mg/dL 70-110 CREATININE (test code = 2160-0) 0.62 mg/dL 0.50-1.04 TOTAL BILI (test code = 1170376964) 0.5 mg/dL 0.1-1.1 CALCIUM (test code = 2498879393) 9.4 mg/dL 8.6-10.6 T PROTEIN (test code = 0911762022) 7.1 g/dL 6.3-8.2 ALBUMIN (test code = 9977822599) 4.3 g/dL 3.5-5.0 ALK PHOS (test code = 3017434153) 101 U/L 34-122 ALTv (test code = 1742-6) 25 U/L 5-35 AST(SGOT) (test code = 0732235148) 22 U/L 13-40 eGFR (test code = 75897-8) 106.0 mL/min/1.73m2 CKD-EPI eGFR (2020). Assuming creatinine has been stable day-to-day for at least three months, the eGFR indicates Category G1 (>= 90 mL/min/1.73 m2) Lab Interpretation (test code = 29873-5) [facility] 14:31:54* Test Item Value Reference Range Interpretation Comme nts LIPASE (test code = 8089825796) 161 U/L 0-220 Lab Interpretation (test cod e = 86901-9) Normal [facility] [id number] 14:19:50* Test Item Value Reference Range Interpretation Comme nts WBC (test code = 6690-2) 7.75 4.30-11.10 RBC (test code = 789-8) 4.78 3.93-5.25 HGB (test code = 718-7) 14.6 g/dL 11.6-15.0 HCT (test code = 4544-3) 43.7 % 35.7-45.2 MCV (test code = 787-2) 91.4 fL 80.6-95.5 MCH (test code = 785-6) 30.5 pg 25.9-32.8 MCHC (test code = 786-4) 33.4 g/dL 31.6-35.1 RDW-SD (test code = 40760-7) 42.8 fL 39.0-49.9 RDW-CV (test code = 788-0) 12.8 % 12.0-15.5 PLT (test code = 777-3) 332 166-358 MPV (test code = 86658-7) 9.6 fL 9.5-12.9 NRBC/100 WBC (test code = 4137001967) 0.0 0.0-10.0 NRBC x10^3 (test code = 3934646117) See_Comment [Automated me ssage] The system which generated this result transmitted reference range: 10*3/?L. The reference range was not used to interpret this result as normal/abnormal. GRAN MAT (NEUT) % (test code = 770-8) 71.4 % IMM GRAN % (test code = 5880738394) 0.30 % LYMPH % (test code = 736-9) 21.7 % MONO % (test code = 5905-5) 5.5 % EOS % (test code = 713-8) 0.6 % BASO % (test code = 706-2) 0.5 % GRAN MAT x10^3(ANC) (test code = 4351398167) 5.53 10*3/uL 1.88-7.09 IMM GRAN x10^3 (test code = 2052376903) 0.00-0.06 LYMPH x10^3 (test code = 731-0) 1.68 10*3/uL 1.32-3.29 MONO x10^3 (test code = 742-7) 0.43 10*3/uL 0.33-0.92 EOS x10^3 (test code = 711-2) 0.05 10*3/uL 0.03-0.39 BASO x10^3 (test code = 704-7) 0.04 10*3/uL 0.01-0.07 [facility][id number] 13:13:12* Test Item Value Reference Range Interpretation Comme nts ESTRADIOL (test code = 2505) 26.8 PG/ML SEE BELOW Note: Values in the range of 17-25 PG/ML may demonstrate increased imprecision. Clinical correlation is recommended. EXPECTED VALUES FOR ESTRADIOL FOR FEMALES >=18 YEARS FOLLICULAR . . . . . . . . . . . . . PG/ML 12.4-233.0 OVULATION. . . . . . . . . . . . . . PG/ML 41.0-398.0 LUTEAL PHASE . . . . . . . . . . . . PG/ML 22.3-341.0 POSTMENOPAUSAL SUPPLEMENTED/NON-SUPP . PG/ML <138.0/<20.0 NOTE: TO DETERMINE NORMAL VS. SUBNORMAL ESTRADIOL IN POSTMENOPAUSAL FEMALES, CONSIDER ULTRASENSITIVE ESTRADIOL (CPL ORDER CODE 5678). METHODOLOGY IS JANINA MARY GRACE ELECTROCHEMILUMINESCENT IMMUNOASSAY WITH A LIMIT OF DETECTION OF 17 PG/ML. [id number] 13:13:12* Test Item Value Reference Range Interpretation Comme [facility] PROLACTIN (test code = 2800) 18.3 NG/ML 5.0-37.0 NOTE: Methodolog y is Janina Mary Grace Electrochemiluminescence Immunoassay (ECLIA). Values obtained with different assays/manufacturers cannot be used interchangeably. Results should not be used as sole basis to establish the presence or absence of malignancy. FSH + LH [id number] 13:13:12* Test Item Value Reference Range Interpretation Comme [facility] FOLLICLE STIM HORMONE (test code = 2700) [...] 1.0-11.4 IU/L POSTMENOPAUSAL 7.7-58.5 IU/L TSH, THIRD [id number] 13:13:12* Test Item Value Reference Range Interpretation Comme [facility] TSH, THIRD GENERATION (test code = 2821) 1.100 UIU/ML 0.400-4.100 [id number] 13:13:12* Test Item Value Reference Range Interpretation Comme nts PROGESTERONE (test code = 2790) 0.41 NG/ML [...] . . . . . NG/ML 58.70-214.[address] [facility] has important pathology staff changes effective 06/05/2022. New pathology staff will provide uninterrupted, excellent patient care and clinical consultation. See URL: [email or web address]. UNLESS OTHERWISE INDICATED, ALL TESTING PERFORMED AT [facility] [address] [place] [address] MANTEL CRAFTSMAN: ROBIN MAXWELL M.D. [place] NUMBER [id number] [facility] [place]. [id number] 08:51:28* Test Item Value Reference Range Interpretation [...] interpret this result as normal/abnormal. COMPREHENSIVE METABOLIC [id number] 06:16:02* Test Item Value Reference Range Interpretation Comme nts GLUCOSE (test code = 2217) 95 MG/DL 70-99 BUN (test code = 2208) 13 MG/DL 6-20 CREATININE (test code = 2214) 0.67 MG/DL 0.60-1.30 eGFR (2020 CKD-EPI) (test code = 19778) 104 ML/MIN/1.73 >60 CALC BUN/CREAT (test code = 2235) 19 RATIO 6-28 SODIUM (test code = 223) 142 MEQ/L 133-146 POTASSIUM (test code = [...] 13 U/L 5-40 CBC W/AUTO DIFF WITH [id number] 04:27:02* Test Item Value Reference Range Interpretation [...] = 1065) 0.0 /100 WBC'S See_Comment [Automated messa ge] The system which generated this result [...] 0.00-0.10 ABS NUCLEATED RBCS (test code = 55949) 0.00 K/UL 0.00-0.11 PAP TEST, THINPREP, [id number] 09:01:34* Test Item Value Reference Range Interpretation Comme nts SOURCE: (test code = 8001) Cervical/Endo cervical SLIDES: (test code = 8011) 2 LMP: (test code = 8021) 06/24/2022 SPECIMEN ADEQUACY: (test code = 54351) (NOTE) Unsatisfactory ( see Interpretation). INTERPRETATION: (test code = 69186) UNSATISFACTOR Y; SEE BELOW A ---- UNSATISFACTORY FOR EVALUATION Insufficient cellularity (Charges deleted, please resubmit) ------- OTHER COMMENTS: (test code = 8081) (NOTE) Glacial acetic a alfonso added due to blood/mucus in specimen. COIN MACHINE MECHANIC: (test code = 8101) MADAI Wilson( CP) IAC QC TECHNOLOGIST: (test code = 8111) MADAI INFANTE(ASCP) LOCATION: (test code = 06221) (NOTE) Specimens proces sed and interpreted at [facility], [address] [place] [address], , CLIA: [id number] CPT: (test code = 8140) (NOTE) [address] UNLESS OTH ERWISE INDICATED, COMPUTER AIDED AND COIN MACHINE MECHANIC SCREENING PERFORMED. The Pap test is a screening test with an inherent, but low probability of error. Your patient should be reminded to consult you immediately if she experiences any suspicious signs or symptoms, regardless of her Pap test result. An alternate report format containing images or consolidated prior Pap history is available as applicable. HPV HIGH RISK WITH GENOTYPE, [id number] 13:22:33* Test Item Value Reference Range Interpretation Comme nts HPV HIGH RISK INTERP (test code = 27260) NEGATIVE NEGATIVE HPV 16 (test code = 15706) NEGATIVE HPV 18 (test code = 53381) NEGATIVE HPV, HR, OTHER GENOTYPES (test code = 40165) NEGATIVE Testing methodol ogy is real-time PCR utilizing hydrolysis probes with the Janina Mary Grace 4800 system. The test individually detects genotypes 16 and 18, as well as the other 12 high risk types (31,33,35,39,45,51,52,56 ,58,59,66,68). The expected result is negative. A negative result does not rule out the presence of HPV not included in the genotype set, a low level of infection or specimen sampling error. [facility] has important pathology staff changes effective 06/05/2022. New pathology staff will provide uninterrupted, excellent patient care and clinical consultation. See URL: [email or web address]. UNLESS OTHERWISE INDICATED, ALL TESTING PERFORMED AT [facility] [address] [place] [address] MANTEL CRAFTSMAN: ROBIN MAXWELL M.D. [place] NUMBER [id number] [facility] [place]. [id number] Notes Date/Time Note Provider Source 2024-03-22 07:27:42 Patient c/o left lower abdominal pain, states that she was diagnosed with fibroids. Pain has been ongoing for 3-4 days, started having diarrhea yesterday and vomited this morning. LY Serna RN [facility] 2024-03-22 07:22:00 [facility] Note Patient Name: Rosa Isela Resendiz Date of : 1970 53 year old female Treatment Room: TX5/TX5 Primary Care Physician: No primary care provider on file. 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 She also reports started with diarrhea this morning as well as nausea and vomiting. She last vomited about 45 minutes prior to arrival. No dysuria or hematuria. She has had her gallbladder removed as well as a section in the past. She reports a history of uterine fibroids and thinks they are flaring up on her. No medication taken for pain today. She does smoke cigarettes. Here for evaluation. Past Medical History/Immunizations: History reviewed. No pertinent past medical history. Tetanus received in last 5 years: Unknown Allergies: No Known Allergies Past Social History: Substance & Sexual Activity No substance use or sexual activity history on file. Past Surgical History: History reviewed. No pertinent surgical history. Review of Systems: Review of Systems Constitutional: Negative for chills and fever. Respiratory: Negative for cough and shortness of breath. Cardiovascular: Negative for chest pain. Gastrointestinal: Positive for abdominal pain, diarrhea, nausea and vomiting. Genitourinary: Negative for dysuria. Musculoskeletal: Negative for arthralgias, neck pain and neck stiffness. Skin: Negative for wound. Neurological: Negative for dizziness. Psychiatric/Behavioral: Negative for agitation. Endocrine: Negative for goiter. Physical Exam: ED Triage Vitals [03/22/24 0729] Weight 74.8 kg (165 lb) Actual or estimated Height 1.549 m (5' 1") BP (!) 140/87 Pulse 78 Resp 18 Temp 37.1 ?C (98.8 ?F) Temp source Oral SpO2 100 % Measured on Room air Physical Exam Vitals and nursing note reviewed. Constitutional: Appearance: Normal appearance. She is obese. HENT: Head: Normocephalic and atraumatic. Cardiovascular: Rate and Rhythm: Normal rate. Pulmonary: Effort: Pulmonary effort is normal. No respiratory distress. Breath sounds: No stridor. No wheezing or rhonchi. Abdominal: General: There is no distension. Palpations: Abdomen is soft. There is no mass. Tenderness: There is no abdominal tenderness. There is no right CVA tenderness, left CVA tenderness or guarding. Hernia: No hernia is present. Musculoskeletal: General: Normal range of motion. Cervical back: Neck supple. Skin: General: Skin is warm. Neurological: General: No focal deficit present. Mental Status: She is alert and oriented to person, place, and time. Radiology: CT ABDOMEN PELVIS W CONTRAST Final Result EXAM: CT ABDOMEN PELVIS W CONTRAST HISTORY: 53 years -old Female with Abdominal pain, acute, nonlocalized COMPARISON: None. TECHNIQUE: Contiguous axial imaging from the level of the lung bases through the proximal thighs was performed after intravenous contrast administration. Coronal and sagittal reconstructions were obtained. FINDINGS: LOWER THORAX: Minimal bibasilar subsegmental atelectasis.. No cardiomegaly.. . LIVER: No focal hepatic lesions. Normal contour. GALLBLADDER AND BILIARY TREE: No intra or extrahepatic biliary ductal dilation. SPLEEN: Unremarkable. PANCREAS: No ductal dilatation or masses ADRENAL GLANDS: No adrenal lesions. KIDNEYS: A 1.1 cm hypodense lesion on the left and 1 cm hypodense lesion on the right is noted and represent cysts. No hydronephrosis, stones, or masses. Homogeneous and symmetrical enhancement. GI TRACT: Pancolonic extensive colonic diverticulosis without diverticulitis. Mild wall thickening of sigmoid colon, probably sequela of hypertrophy from diverticulosis. No dilation. The appendix is normal. PERITONEUM AND RETROPERITONEUM: No free air or fluid collection. LYMPH NODES: No intra-abdominal or pelvic lymph node enlargement. PELVIS/BLADDER: Bladder is underdistended and cannot be completely evaluated. Heterogenous appearing uterus could be secondary to timing of the contrast from heterogeneous enhancement. Irregular hyperdensity in the endocervical canal extending to the vagina. It measures 1.5 cm in transverse dimension and 6 cm in length. Bilateral ovaries are unremarkable. VESSELS: Mild atherosclerotic disease of aorta and iliac branches. BONES AND SOFT TISSUES: No suspicious lytic or sclerotic bony lesions. IMPRESSION No acute finding or abnormality to explain patient's symptom. Extensive colonic diverticulosis without acute diverticulitis. Irregular hyperdense material within the distal endocervical canal extending to the vagina. This could represent an enhancing mass which can be combined with inspissated mucus or blood clot. A SUPERVISOR PRINTING AND STAMPING examination and nonurgent pelvic ultrasound is recommended to evaluate the cervical canal and vagina for evidence of benign or malignant mass. I, Pb Blum MD., have reviewed this study and agree with the above report. Lab Results: Lab Results COMP. METABOLIC PANEL (33917) - Abnormal Result Value Ref Range NA 141 135 - 145 mmol/L K 3.9 3.5 - 5.0 mmol/L CL 111 (*) 98 - 108 mmol/L CO2 TOTAL 25 23 - 31 mmol/L AGAP 5 2 - 16 BUN 17 7 - 23 mg/dL GLUCOSE 105 70 - 110 mg/dL CREATININE 0.62 0.50 - 1.04 mg/dL TOTAL BILI 0.5 0.1 - 1.1 mg/dL CALCIUM 9.4 8.6 - 10.6 mg/dL T PROTEIN 7.1 6.3 - 8.2 g/dL ALBUMIN 4.3 3.5 - 5.0 g/dL ALK PHOS 101 34 - 122 U/L ALTv 25 5 - 35 U/L AST(SGOT) 22 13 - 40 U/L eGFR 106.0 mL/min/1.73m2 URINALYSIS - Abnormal APPEARANCE Slightly Cloudy (*) Clear COLOR Yellow Yellow PH 5.0 4.8 - 8.0 SP GRAVITY 1.020 1.003 - 1.030 GLU U QUAL Normal Normal BLOOD 2+ (*) Negative KETONES 5 mg/dL (*) Negative PROTEIN 30 mg/dL (*) Negative UROBILIN Normal Normal BILIRUBIN Negative Negative NITRITE Negative Negative LEUK JUDE 75/uL (*) Negative RBC/HPF 26 (*) 0 - 3 HPF WBC/HPF 8 (*) 0 - 5 HPF BACTERIA Few (*) Negative MUCOUS Slight (*) Negative LPF SQ EPITH 2 HPF LIPASE - Normal LIPASE 161 0 - 220 U/L MAGNESIUM - Normal MAGNESIUM 2.1 1.7 - 2.4 mg/dL CBC WITH DIFF WBC 7.75 4.30 - 11.10 10*3/?L RBC 4.78 3.93 - 5.25 10*6/?L HGB 14.6 11.6 - 15.0 g/dL HCT 43.7 35.7 - 45.2 % MCV 91.4 80.6 - 95.5 fL MCH 30.5 25.9 - 32.8 pg MCHC 33.4 31.6 - 35.1 g/dL RDW-SD 42.8 39.0 - 49.9 fL RDW-CV 12.8 12.0 - 15.5 % PLT 332 166 - 358 10*3/?L MPV 9.6 9.5 - 12.9 fL NRBC/100 WBC 0.0 0.0 - 10.0 /100 WBCs NRBC x10 3 <0.01 10*3/?L GRAN MAT (NEUT) % 71.4 % IMM GRAN % 0.30 % LYMPH % 21.7 % MONO % 5.5 % EOS % 0.6 % BASO % 0.5 % GRAN MAT x10 3 (ANC) 5.53 1.88 - 7.09 10*3/uL IMM GRAN x10 3 <0.03 0.00 - 0.06 10*3/uL LYMPH x10 3 1.68 1.32 - 3.29 10*3/uL MONO x10 3 0.43 0.33 - 0.92 10*3/uL EOS x10 3 0.05 0.03 - 0.39 10*3/uL BASO x10 3 0.04 0.01 - 0.07 10*3/uL EKG: If EKG completed, see Procedure Note. Orders and Treatments: Orders Placed This Encounter Procedures CT ABDOMEN PELVIS W CONTRAST CBC WITH DIFF COMP. METABOLIC PANEL (73353) LIPASE Magnesium URINALYSIS Orders Placed This Encounter Medications ondansetron (ZOFRAN (PF)) injection 4 mg ketorolac (TORADOL) injection 30 mg iopamidol (ISOVUE 370-500 mL) injection 85 mL fentanyl PF (SUBLIMAZE (PF)) injection 50 mcg sulfamethoxazole-trimethoprim (BACTRIM DS) 800-160 mg per tablet 1 tablet sulfamethoxazole-trimethoprim 800-160 mg per tablet First Provider Eval: ED Events Date/Time Event User Comments 03/22/24724 Medical Screening Begins SARA BALBUENA DO -- 03/22/24 07 First Provider Evaluation SARA BALBUENA DO -- ED COURSE Diagnosis/Impression as of 03/22/24 1037 Generalized abdominal pain Acute cystitis without hematuria Procedures: Procedures MDM: Medical Decision Making The patient presents from home for evaluation for lower abdominal pain for the past 3 to 4 days. She also reports started with diarrhea this morning as well as nausea and vomiting. She last vomited about 45 minutes prior to arrival. No dysuria or hematuria. She has had her gallbladder removed as well as a section in the past. She reports a history of uterine fibroids and thinks they are flaring up on her. No medication taken for pain today. She does smoke cigarettes. Vital signs are stable in the ER. Her abdomen is soft and nontender. She has no CVA tenderness bilaterally. Differential diagnosis includes UTI, diverticulitis, uterine fibroids, colitis. Will check laboratory studies and a urinalysis. Will obtain a CT of her abdomen and pelvis and provide the patient with pain medication. Final disposition pending. 1036 - The patient is doing well here in the ER. Her laboratory studies are unremarkable. her urinalysis shows no infection. The CT of her abdomen and pelvis shows no acute intra-abdominal pathology but does show material in the cervical canal that will need to be followed up with by BATCH ANALYST. She remained stable here in the ER and is okay for discharge home with outpatient BATCH ANALYST follow-up. Problems Addressed: Acute cystitis without hematuria: acute illness or injury Generalized abdominal pain: acute illness or injury Amount and/or Complexity of Data Reviewed Labs: ordered. Decision-making details documented in ED Course. Radiology: ordered and independent interpretation performed. Decision-making details documented in ED Course. Risk OTC drugs. Prescription drug management. Parenteral controlled substances. Flowsheet Documentation: Scoring Tools: No data recorded Disposition/Condition: ED Disposition ED Disposition Discharge Condition Stable Comment -- Discharge Medications: Patient's Medications START taking these medications SULFAMETHOXAZOLE-TRIMETHOPRIM 800-160 MG PER TABLET Take 1 tablet by mouth every 12 (twelve) hours. CONTINUE taking these medications which have NOT CHANGED No medications on file START taking Modified Medications as Prescribed No medications on file STOP taking these medications No medications on file Follow-up: Electronically signed by: Sara Balbuena DO 03/22/24 1037 [facility]
[2024-06-23 11:43] LABS: Influenza A Ag Negative; Influenza B Ag Negative; SARS-CoV-2 Antigen Rapid Res Negative (Negative)
--- NOTE | 2024-06-23 11:50 | RAD REPORT ---
EXAMINATION: ONE VIEW CHEST XR CLINICAL INDICATION: COUGH TECHNIQUE: Frontal chest projection is submitted. Examination is limited by patient positioning and t echnique. COMPARISON: 10/29/2023 FINDINGS: Nonspecific peribronchial thickening without focal consolidation could represent a viral or inflammat ory process. The heart is normal in size. No displaced fractures identified. IMPRESSION: Interstitial pattern bilaterally could be related to viral infection or reactive airway disease.
[2024-06-23 12:58] LABS: Specific Gravity 1.016 (1.005-1.030); Sqamous Epithelial <5 /HPF (None Seen); Urine Bacteria None Seen /HPF (<20); Urine Bilirubin NEGATIVE (Negative); Urine Blood 2+ (Negative); Urine Clarity Clear (Clear); Urine Color Light-Yellow (Yellow); Urine Culture Reflex Order NOT NEEDED; Urine Glucose NEGATIVE (Negative); Urine Ketones NEGATIVE (Negative); Urine Microscopic Reflex YN ORDER UMIC; Urine Mucus Slight /HPF (None Seen); Urine Nitrite NEGATIVE (Negative); Urine Protein NEGATIVE (Negative); Urine Urobilinogen Normal (Normal); Urine WBC <5 /HPF (<5)
--- NOTE | 2024-06-23 13:30 | EDPHYS ---
Physician Documentation [facility] Name: Rosa Isela Resendiz Age: 54 yrs Sex: Female : 1970 Arrival Date: 06/23/2024 Time: 10:55 Bed 11 Private MD: ED Physician Nancy Smith HPI: 06/23 11:58 This 54 yrs old Female presents to ER via Ambulatory with complaints of Flu sp3 Symptoms. 11:58 54-year-old female with history of anxiety, depression presents to the ED after upper sp3 respiratory infection type symptoms sent by her employer. Patient took a home COVID test which was negative. Patient's current complaints include cough, congestion and nausea coupled with mild diarrhea. She also states that she "might have a UTI". She denies any fever, chest pain, shortness of breath, abdominal pain, syncope, near syncope, known sick contacts, travel history, or any other signs or symptoms on ROS at this time.. TAR HEEL: 11:15 LMP N/A - Post-menopause, Not cm10 Historical: - Allergies: 11:15 No Known Allergies; cm10 - PMHx: 11:15 angina pectoris; Anxiety; Depression; Migraines; cm10 - PSHx: 11:15 section; Cholecystectomy; cm10 - Immunization history:: Adult Immunizations up to date. - Infectious Disease History:: Denies. - Social history:: Smoking status: unknown. ROS: 11:58 Constitutional: Negative for fever, chills, and weight loss, Eyes: Negative for injury, sp3 pain, redness, and discharge, ENT: Negative for injury, pain, and discharge, Neck: Negative for injury, pain, and swelling, Cardiovascular: Negative for chest pain, palpitations, and edema, Abdomen/GI: Negative for abdominal pain, nausea, vomiting, diarrhea, and constipation, Back: Negative for injury and pain, MS/Extremity: Negative for injury and deformity, Skin: Negative for injury, rash, and discoloration, Neuro: Negative for headache, weakness, numbness, tingling, and seizure, Psych: Negative for depression, anxiety, suicide ideation, homicidal ideation, and hallucinations, Allergy/Immunology: Negative for hives, rash, and allergies, Endocrine: Negative for neck swelling, polydipsia, polyuria, polyphagia, and marked weight changes, Hematologic/Lymphatic: Negative for swollen nodes, abnormal bleeding, and unusual bruising, 11:58 All other systems are negative, Exam: 11:59 Constitutional: This is a well developed, well nourished patient who is awake, alert, sp3 and in no acute distress. Head/Face: Normocephalic, atraumatic. Eyes: Pupils equal round and reactive to light, extra-ocular motions intact. Lids and lashes normal. Conjunctiva and sclera are non-icteric and not injected. Cornea within normal limits. Periorbital areas with no swelling, redness, or edema. Neck: Trachea midline, no thyromegaly or masses palpated, and no cervical lymphadenopathy. Supple, full range of motion without nuchal rigidity, or vertebral point tenderness. No Meningismus. Chest/axilla: Normal chest wall appearance and motion. Nontender with no deformity. No lesions are appreciated. Cardiovascular: Regular rate and rhythm with a normal S1 and S2. No gallops, murmurs, or rubs. Normal PMI, no JVD. No pulse deficits. Abdomen/GI: Soft, non-tender, with normal bowel sounds. No distension or tympany. No guarding or rebound. No evidence of tenderness throughout. Back: No spinal tenderness. No costovertebral tenderness. Full range of motion. Skin: Warm, dry with normal turgor. Normal color with no rashes, no lesions, and no evidence of cellulitis. MS/ Extremity: Pulses equal, no cyanosis. Neurovascular intact. Full, normal range of motion. Neuro: Awake and alert, GCS 15, oriented to person, place, time, and situation. Cranial nerves II-XII grossly intact. Motor strength 5/5 in all extremities. Sensory grossly intact. Cerebellar exam normal. Normal gait. Psych: Awake, alert, with orientation to person, place and time. Behavior, mood, and affect are within normal limits. 11:59 Respiratory: Active cough noted without wheeze. Mild rhinorrhea also noted. Patient 100% room air pulse oxygenation. Remainder vital signs normal. Blood pressure recheck also normal., Vital Signs: 11:12 BP 164 / 103; Pulse 73; Resp 15; Temp 98.4; Pulse Ox 100% on R/A; Weight 72.57 kg; cm10 Height 5 ft. 4 in. ; Pain 8/10; 11:12 Body Mass Index 27.46 (72.57 kg, 162.56 cm) cm10 11:12 Pain Scale: Adult cm10 MDM: 11:01 Medical Screening Exam initiated sp3 11:59 Data reviewed: vital signs, nurses notes, lab test result(s), radiologic studies. ED sp3 course: 54-year-old female with URI symptoms. Differential diagnosis includes upper respiratory infection, viral illness, COVID-19, influenza, bronchitis, pneumonia, among others. Also UTI is a possibility given her "feeling". Workup will include chest x-ray, viral swabs and UA. Chest x-ray is normal other than viral pattern consistent with clinical suspicion. All viral swabs are negative. UA is pending. If workup negative we will safely discharge patient home with OTC meds and general supportive care.. 06/23 11:01 Order name: COVID-19 Ag + Flu A+B Ag; Complete Time: 11:44 sp3 06/23 11:42 Order name: Urinalysis w/ reflexes; Complete Time: 13:26 cm10 06/23 11:01 Order name: CXR XRAY; Complete Time: 11:51 sp3 Administered Medications: No medications were administered Disposition Summary: 06/23/24 13:29 Discharge Ordered Notes: Location: Home sp3 Condition: Stable sp3 Diagnosis - Upper respiratory infection, viral illness sp3 Followup: sp3 - With: Private Physician - When: Upon discharge from the Emergency Department - Reason: Recheck today's complaints, Continuance of care Discharge Instructions: - Discharge Summary Sheet sp3 - Upper Respiratory Infection, Adult sp3 Forms: - Work release form iw - Medication Reconciliation Form sp3 - Antibiotic Education sp3 - Prescription Opioid Use sp3 - Patient Portal Instructions sp3 - Leadership Thank You Letter sp3 Signatures: Dispatcher [employer] EDNancy Kim MD MD sp3 Lissa Casas RN RN cm10 Corrections: (The following items were deleted from the chart) 11:43 11:43 Urinalysis+U.LAB.BRZ ordered. MATILDEVA ELHAM
--- NOTE | 2024-06-23 13:30 | ER ---
Nurse's Notes [facility] Name: Rosa Isela Resendiz Age: 54 yrs Sex: Female : 1970 Arrival Date: 06/23/2024 Time: 10:55 Bed 11 Private MD: Diagnosis: Upper respiratory infection, viral illness Presentation: 06/23 11:12 Chief complaint: Patient states: Haven't been feeling well. Has had chills, fever, cm10 diarrhea, headache onset 3 days ago. Pt also reports having difficulty urinating. Coronavirus screen: Client denies travel out of the [place] in the last 14 days. Ebola Screen: Patient denies travel to an Ebola-affected area in the 21 days before illness onset. Initial Sepsis Screen: Does the patient meet any 2 criteria? No. Patient's initial sepsis screen is negative. Does the patient have a suspected source of infection? No. Patient's initial sepsis screen is negative. Risk Assessment: Do you want to hurt yourself or someone else? Patient reports no desire to harm self or others. Onset of symptoms was June 23, 2024. 11:12 Method Of Arrival: Ambulatory cm10 11:12 Acuity: MITCH 4 cm10 Triage Assessment: 11:14 General: Appears in no apparent distress. uncomfortable, Behavior is calm, cooperative. cm10 Neuro: No deficits noted. Level of Consciousness is awake, alert, obeys commands, Oriented to person, place, time, situation, Appropriate for age. Respiratory: No deficits noted. Airway is patent Respiratory effort is even, unlabored, Respiratory pattern is regular, symmetrical. 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 - Infectious Disease History:: Denies. - Social history:: Smoking status: unknown. Vital Signs: 11:12 BP 164 / 103; Pulse 73; Resp 15; Temp 98.4; Pulse Ox 100% on R/A; Weight 72.57 kg; cm10 Height 5 ft. 4 in. ; Pain 8/10; 11:12 Body Mass Index 27.46 (72.57 kg, 162.56 cm) cm10 11:12 Pain Scale: Adult cm10 ED Course: 10:59 Patient arrived in ED. cj3 11:00 Nancy Smith MD is Attending Physician. sp3 11:14 Triage completed. cm10 11:15 Arm band placed on right wrist. Patient placed in an exam room, on a stretcher. cm10 11:41 CXR XRAY In Process Unspecified. EDMS 12:01 Tamie Fulton, RN is Primary Nurse. iw Administered Medications: No medications were administered Outcome: 13:29 Discharge ordered by . sp3 14:17 Patient left the ED. iw Signatures: Dispatcher [employer] EDMS Tamie Fulton, RN RN iw Nancy Smith MD MD sp3 Lissa Casas RN RN [facility] Aleksandra Lucas 3
[2024-06-23 20:31] VITALS: BP 164/103; TEMP 98.4; O2SAT 100
== END 2024-06-23 14:17 | disposition home or self-care (01) ==
LOC: ER 10:55
DX: J06.9 Acute upper respiratory infection, unspecified (principal); B34.9 Viral infection, unspecified; Z11.52 Encounter for screening for COVID-19
CPT/HCPCS: 36415; 71045; 81001; 87428

== ENCOUNTER 2024-08-16 09:51 | Emergency (ER) | payer OTHER, SELFPAY ==
--- OUTSIDE RECORDS SUMMARY | 2024-08-16 09:55 | XMS REPORT | Continuity of Care Document ---
Author Name Unknown Address [address] [facility] [place] [address] Organization [facility] [place] Address [address] [facility] [place] [address] Care Team Providers Care Hatchery Attendant Name Role Phone PCP, PATIENT DOES NOT HAVE A Primary Care Physic florentino SARA Redd Attending Clinician SARA Ervin Attending Clinician Sara Ervin DO Attending Clinician SARA BALBUENA Admitting Clinician Deepak cardoso Payelsa Payer Name Policy Type Policy Number Effective Date Expirati on Date Source [facility] [id number] 2024-02-06 00:00:00 2024-04-06 00:00:00 Allergies, Adverse Reactions, Alerts Allergy Name Allergy Type Status Severity Reaction(s) Onset Date Inactive Date Treating Clinician Comments Source NO KNOWN ALLERGIE S Drug Class Active [facility] Social History Social Habit Start Date Stop Date Quantity Comments Source Sexual orientation U [facility] Sex assigned at 1970 00:00:00 1970 00:00:00 [facility] Smoking Status Start Date Stop Date Source Tobacco smoking consumption unknown [facility] Medications Ordered Medication Name Filled Medication Name [...] Urine, Duration of Therapy: Once (ED) [facility] fentanyl PF (SUBLIMAZE (PF)) injection 50 mcg 2023-04 16:30: 00 03-22 16:40 :00 No 50ug 50 mcg, Slow IV Push, ONCE, 1 dose, On Fri03/22/24 at 1030, Routine [facility] iopamidol (ISOVUE 370-500 mL) injection 85 mL 2023-04 15:45: 00 03-22 15:45 :00 No [id number] 85mL 85 mL, Intravenou s, ONCE, 1 dose, On Fri03/22/24 at 0945, Routine [facility] ketorolac (TORADOL) injection 30 mg 2023-04 14:30: 00 03-22 13:53 :00 No 30mg 30 mg, Slow IV Push, ONCE, 1 dose, On Fri03/22/24 at 0830, Routine [facility] ondansetron (ZOFRAN (PF)) injection 4 mg 2023-04 13:45: 00 03-22 13:57 :00 No 4mg 4 mg, Slow IV Push, ONCE, 1 dose, On Fri03/22/24 at 0745, Administer over 2-5 Minutes, 2 mL [facility] sulfamethox azole-trime thoprim 800-160 mg per tablet 2023-04 00:00: 00 Yes [id number] 1{tbl} Take 1 tablet by mouth every 12 (twelve) hours. [facility] Vital Signs Vital Name Observation Time Observation Value Comments S ourcyril Systolic blood pressure 2024-03-22 17:00:00 143 mm[Hg] [facility] Diastolic blood pressure 2024-03-22 17:00:00 107 mm[Hg] [facility] Heart rate 2024-03-22 17:00:00 57 /min [facility] Oxygen saturation in Arterial blood by Pulse oximetry 2024-03-22 17:00:00 98 /min [place] [facility] Body temperature 2024-03-22 16:53:00 37.11 Brianne [facility] Respiratory rate 2024-03-22 16:53:00 14 /min [facility] Body height 2024-03-22 13:29:00 154.9 cm [facility] Body weight 2024-03-22 13:29:00 74.844 kg [facility] BMI 2024-03-22 13:29:00 31.18 kg/m2 [facility] Procedures Procedure Date / Time Performed Performing Clinicia n Source CT ABDOMEN PELVIS W CONTRAST 2024-03-22 14:50:36 Sara Balbuena [facility] LIPASE 2024-03-22 13:47:00 [facility] 2024-03-22 13:47:00 Sara Balbuena [facility] COMP. METABOLIC PANEL (11144) 2024-03-22 13:47:00 Sara Balbuena [facility] CBC WITH DIFF 2024-03-22 13:47:00 [facility] 2024-03-22 13:47:00 Sara Balbuena [facility] Encounters Start Date/Time End Date/Time Encounter Type Admission Type Attending [facility] Emergency Department Facility Care Department Encounter ID Source 2024-03-22 07:30:00 2024-03-22 11:15:00 Emergency X SARA BALBUENA [facility] ERT [id number] [facility] 2024-03-22 07:30:00 2024-03-22 11:15:00 Emergency Sara Balbuena [facility] [id number] [facility] 2022-08-01 08:23:43 2022-08-01 08:23:43 Outpatient [facility] SFA [id number] Stewart Arriaga 2022-07-31 17:15:10 2022-07-31 17:15:10 Outpatient [facility] [id number] Stewart Arriaga 2022-07-11 13:51:19 2022-07-11 13:51:19 Outpatient [facility] [id number] Stewart Arriaga 2022-07-10 10:06:12 2022-07-10 10:06:12 Outpatient [facility] [id number] Stewart Arriaga Results Test Description [...] No suspicious lytic or sclerotic bony lesions[facility]22 14:31:54* Test Item Value Reference Range Interpretation Comme nts NA (test code = 0111787411) 141 mmol/L 135-145 K (test code = 6163947988) 3.9 mmol/L 3.5-5.0 CL (test code = 0880461818) 111 mmol/L 98-108 H CO2 TOTAL (test code = 2156948314) 25 mmol/L 23-31 AGAP (test code = 9836120248) 5 2-16 BUN (test code = 4622201854) 17 mg/dL 7-23 GLUCOSE (test code = 8193927693) 105 mg/dL 70-110 CREATININE (test code = 2160-0) 0.62 mg/dL 0.50-1.04 TOTAL BILI (test code = 0431796693) 0.5 mg/dL 0.1-1.1 CALCIUM (test code = 5252292212) 9.4 mg/dL 8.6-10.6 T PROTEIN (test code = 2682649920) 7.1 g/dL 6.3-8.2 ALBUMIN (test code = 9976130825) 4.3 g/dL 3.5-5.0 ALK PHOS (test code = 6783990468) 101 U/L 34-122 ALTv (test code = 1742-6) 25 U/L 5-35 AST(SGOT) (test code = 4306097505) 22 U/L 13-40 eGFR (test code = 60343-2) 106.0 mL/min/1.73m2 CKD-EPI eGFR (2020). Assuming creatinine has been stable day-to-day for at least three months, the eGFR indicates Category G1 (>= 90 mL/min/1.73 m2) Lab Interpretation (test code = 96608-2) [facility]normal [facility] 14:31:54* Test Item Value Reference Range Interpretation Comme nts LIPASE (test code = 2723514960) 161 U/L 0-220 Lab Interpretation (test cod e = 14190-3) Normal [facility] [id number] 14:19:50* Test Item Value Reference Range Interpretation [...] 33.4 g/dL 31.6-35.1 RDW-SD (test code = 73988-8) 42.8 fL 39.0-49.9 RDW-CV (test code = 788-0) 12.8 % 12.0-15.5 PLT (test code = 777-3) 332 166-358 MPV (test code = 89197-5) 9.6 fL 9.5-12.9 NRBC/100 WBC (test code = 3127443153) 0.0 0.0-10.0 NRBC x10^3 (test code = 4370972530) See_Comment [Automated me ssage] The system which generated this result transmitted reference range: 10*3/?L. The reference range was not used to interpret this result as normal/abnormal. GRAN MAT (NEUT) % (test code = 770-8) 71.4 % IMM GRAN % (test code = 9194655625) 0.30 % LYMPH % (test code = 736-9) 21.7 % MONO % (test code = 5905-5) 5.5 % EOS % (test code = 713-8) 0.6 % BASO % (test code = 706-2) 0.5 % GRAN MAT x10^3(ANC) (test code = 6550739449) 5.53 10*3/uL 1.88-7.09 IMM GRAN x10^3 (test code = 4364043739) 0.00-0.06 LYMPH x10^3 (test code = 731-0) 1.68 10*3/uL 1.32-3.29 MONO x10^3 (test code = 742-7) 0.43 10*3/uL 0.33-0.92 EOS x10^3 (test code = 711-2) 0.05 10*3/uL 0.03-0.39 BASO x10^3 (test code = 704-7) 0.04 10*3/uL 0.01-0.07 [facility], THIRD [id number] 13:13:12* Test Item Value Reference Range Interpretation Comme nts TSH, THIRD GENERATION (test code = 2821) 1.100 UIU/ML 0.400-4.100 [id number] 13:13:12* Test Item Value Reference Range Interpretation [...] . . . . . NG/ML 58.70-214.00 [facility] has important pathology staff changes effective 06/05/2022. New pathology staff will provide uninterrupted, excellent patient care and clinical consultation. See URL: [email or web address]. UNLESS OTHERWISE INDICATED, ALL TESTING PERFORMED AT [facility] [address] [facility] [place] [address] EXECUTIVE RECRUITER: ROBIN MAXWELL M.D. CLIA NUMBER [id number] [facility] [place]. [id number] 13:13:12* Test Item Value Reference Range Interpretation [...] ESTRADIOL IN POSTMENOPAUSAL FEMALES, CONSIDER ULTRASENSITIVE ESTRADIOL ([facility] ORDER CODE 5678). METHODOLOGY IS JANINA MARY GRACE ELECTROCHEMILUMINESCENT IMMUNOASSAY WITH A LIMIT OF DETECTION OF 17 PG/ML. [id number] 13:13:12* Test Item Value Reference Range Interpretation Comme [facility] PROLACTIN (test code = 2800) 18.3 NG/ML 5.0-37.0 NOTE: Methodolog y is Janina Mary Grace Electrochemiluminescence Immunoassay (ECLIA). Values obtained with different assays/manufacturers cannot be used interchangeably. Results should not be used as sole basis to establish the presence or absence of malignancy. FSH + LH [id number] 13:13:12* Test Item Value Reference Range Interpretation Comme [facility] FOLLICLE STIM HORMONE (test code = [...] LUTEAL PHASE 1.0-11.4 IU/L POSTMENOPAUSAL 7.7-58.5 IU/L [id number] 08:51:28* Test Item Value Reference Range Interpretation Comme [facility] TESTOSTERONE (test code = 2830) 31 NG/DL See_Comment NOTE: TOTAL TESTOSTERONE ASSAY SENSITIVITY IS 12 NG/DL. TO DETERMINE NORMAL VS. SUBNORMAL TESTOSTERONE IN CHILDREN AND WOMEN, CONSIDER TESTING WITH ULTRASENSITIVE TESTOSTERONE. [Automated message] The system which generated this result transmitted reference range: <=55. The reference range was not used to interpret this result as normal/abnormal. COMPREHENSIVE METABOLIC [id number] 06:16:02* Test Item Value Reference Range Interpretation Comme [facility] GLUCOSE (test code = 7) 95 MG/DL 70-99 BUN (test code = 2207) 13 MG/DL 6-20 CREATININE (test code = 221) 0.67 MG/DL 0.60-1.30 eGFR (2020 CKD-EPI) (test code = 85004) 104 ML/MIN/1.73 >60 CALC BUN/CREAT (test code [...] 13 U/L 5-40 CBC W/AUTO DIFF WITH [id number] 04:27:02* Test Item Value Reference Range Interpretation [...] 0.00-0.10 ABS NUCLEATED RBCS (test code = 27684) 0.00 K/UL 0.00-0.11 PAP TEST, THINPREP, [id number] 09:01:34* Test Item Value Reference Range Interpretation Comme nts SOURCE: (test code = 8001) Cervical/Endo cervical SLIDES: (test code = 8011) 2 LMP: (test code = 8021) 06/24/2022 SPECIMEN ADEQUACY: (test code = 17421) (NOTE) Unsatisfactory ( see Interpretation). INTERPRETATION: (test code = 51997) UNSATISFACTOR Y; SEE BELOW A ---- UNSATISFACTORY FOR EVALUATION Insufficient cellularity (Charges deleted, please resubmit) ------- OTHER COMMENTS: (test code = 8081) (NOTE) Glacial acetic a alfonso added due to blood/mucus in specimen. DJ INSTRUCTOR: (test code = 8101) MADAI Wilson( CP) IAC QC TECHNOLOGIST: (test code = 8111) MADAI INFANTE(ASCP) LOCATION: (test code = 38513) (NOTE) Specimens proces sed and interpreted at [facility], [address] [place] [address], , CLIA: [id number] CPT: (test code = 8140) (NOTE) 57996 UNLESS OTH ERWISE INDICATED, COMPUTER AIDED AND DJ INSTRUCTOR SCREENING PERFORMED. The Pap test is a screening test with an inherent, but low probability of error. Your patient should be reminded to consult you immediately if she experiences any suspicious signs or symptoms, regardless of her Pap test result. An alternate report format containing images or consolidated prior Pap history is available as applicable. HPV HIGH RISK WITH GENOTYPE, [id number] 13:22:33* Test Item Value Reference Range Interpretation Comme nts HPV HIGH RISK INTERP (test code = 36830) NEGATIVE NEGATIVE HPV 16 (test code = 61558) NEGATIVE HPV 18 (test code = 35620) NEGATIVE HPV, HR, OTHER GENOTYPES (test code = 25544) NEGATIVE Testing methodol ogy is real-time PCR [...] level of infection or specimen sampling error. [facility] has important pathology staff changes effective 06/05/2022. New pathology staff will provide uninterrupted, excellent patient care and clinical consultation. See URL: [email or web address]. UNLESS OTHERWISE INDICATED, ALL TESTING PERFORMED AT [facility] [address] [place] [address] EXECUTIVE RECRUITER: ROBIN MAXWELL M.D. CLIA NUMBER [id number] [facility] [place]. [id number] Notes Date/Time Note Provider Source 2024-03-22 07:27:42 Patient c/o left lower abdominal pain, states that she was diagnosed with fibroids. Pain has been ongoing for 3-4 days, started having diarrhea yesterday and vomited this morning. LY Serna RN [facility] 2024-03-22 07:22:00 [facility] Emergency Department Note Patient Name: Rosa Isela Resendiz Date of : 1970 53 year old female Treatment Room: TX5/TX5 Primary Care Physician: No primary care provider on file. 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 A BUGGY LOADER examination and nonurgent pelvic ultrasound is recommended to evaluate the cervical canal and vagina for evidence of benign or malignant mass. I, Pb Blum MD., have reviewed this study and agree with the above report. Lab Results: Lab Results COMP. METABOLIC PANEL (60821) - Abnormal Result Value Ref Range NA [...] CONTRAST CBC WITH DIFF COMP. METABOLIC PANEL (40970) LIPASE Magnesium URINALYSIS Orders Placed This Encounter [...] Medical Screening Begins SARA BALBUENA DO -- 03/22/24724 First Provider Evaluation SARA BALBUENA DO -- [...] need to be followed up with by SUPERINTENDENT MEASUREMENT. She remained stable here in the ER and is okay for discharge home with outpatient SUPERINTENDENT MEASUREMENT follow-up. Problems Addressed: Acute cystitis without hematuria: [...] signed by: Sara Balbuena DO 03/22/24 1037 [facility]
[2024-08-16 11:01] LABS: Specific Gravity 1.021 (1.005-1.030); Sqamous Epithelial <5 /HPF (None Seen); Urine Bacteria <20 /HPF (<20); Urine Bilirubin NEGATIVE (Negative); Urine Blood 2+ (Negative); Urine Clarity Turbid (Clear); Urine Color Yellow (Yellow); Urine Culture Reflex Order REFLEXED; Urine Glucose NEGATIVE (Negative); Urine Ketones NEGATIVE (Negative); Urine Microscopic Reflex YN ORDER UMIC; Urine Mucus Slight /HPF (None Seen); Urine Nitrite NEGATIVE (Negative); Urine Protein NEGATIVE (Negative); Urine Urobilinogen 1+ (Normal); Urine pH 5.5 (5.0-7.0)
[2024-08-16 11:29] LABS: Absolute Basophils 0.1 K/uL (0-0.5); Absolute Eosinophils 0.1 K/uL (0-0.5); Absolute Monocytes 0.5 K/uL (0.1-1.3); Eosinophils % 1.4 % (0-4.4); Hematocrit 44.6 % (36.0-45.0); Hemoglobin 15.4 g/dL (12.0-15.0); Lymphocytes % 20.8 % (15.3-44.8); MCH 30.7 pg (27.0-35.0); MCHC 34.5 g/dL (32.0-36.0); MCV 89.2 fL (80-100); MPV 7.9 fL (7.6-11.3); Monocytes % 4.9 % (3.3-12.3); Neutrophils % 71.9 % (41.7-73.7); Nucleated Red Blood Cells % 0.1 % (0-0); Platelets 317 thou/uL (152-406); Red Cell Distribution Width 13.5 % (12.1-15.2)
[2024-08-16 11:46] LABS: ALT/SGPT 17 U/L (13-56); AST/SGOT < 10 U/L (15-37); Albumin 3.5 g/dL (3.4-5.0); Alkaline Phosphatase 118 U/L (45-117); Anion Gap 6.5 mEq/L (5.0-15.0); BUN Blood Urea Nitrogen 8 mg/dL (7-18); Bicarbonate 27 mEq/L (21-32); Bilirubin Total 0.3 mg/dL (0.2-1.0); Globulin 3.6 g/dL (2.3-3.5); Glomerular Filtration Rate 88 ml/min (=/>90); Glucose Level 113 mg/dL (74-106); Potassium 3.5 mEq/L (3.5-5.1); Protein, Total 7.1 g/dL (6.4-8.2); Sodium Level 141 mEq/L (136-145)
--- NOTE | 2024-08-16 12:16 | RAD REPORT ---
EXAMINATION: CT Abdomen Pelvis W Contrast CLINICAL INDICATION: Female, 54 years old. ABD PAIN TECHNIQUE: CT abdomen and pelvis was performed, after the administration of IV contrast, as per [facility] protocol. Axial, sagittal and coronal reconstructions were obtained. One or more of the following dose reduction techniques were used: Automated exposure control, adjustment of the mA and k V according to patient size, and iterative reconstruction. Unless otherwise specified, incidental findings do not require dedicated imaging follow-up. COMPARISON: 10/29/2023 FINDINGS: LOWER CHEST: The visualized lung bases are clear. LIVER: Normal in size and contour. No focal lesion. BILIARY SYSTEM: Status post cholecystectomy. SPLEEN: Normal size. No focal lesion. PANCREAS: No mass, ductal dilation, or magdi-pancreatic fluid. Elongated hypoattenuating lesion along the distal pancreatic body measuring 1.2 cm, stable, may represent a nonspecific cyst. ADRENALS: Normal; no mass. KIDNEYS: Normal size and contour. No hydronephrosis. URINARY BLADDER: Decompressed limiting evaluation. GASTROINTESTINAL TRACT: No evidence of free air, significant intra-abdominal free fluid, bowel obstru ction or abscess. APPENDIX: Normal appendix. LYMPH NODES: No lymphadenopathy. MUSCULOSKELETAL: No acute or suspicious osseous abnormality. ADDITIONAL FINDINGS: None. IMPRESSION: No acute or concerning abnormalities seen in the abdomen or pelvis. Stable small hypoattenuating distal pancreatic body lesion measuring 1.2 cm, probably lobe clinical s ignificance. Consider short-term follow-up pancreatic protocol CT or MRI in 2 years to ensure stability. Other stable findings as above.
--- NOTE | 2024-08-16 13:14 | EDPHYS ---
Physician Documentation [facility] Name: Rosa Isela Resendiz Age: 54 yrs Sex: Female : 1970 Arrival Date: 08/16/2024 Time: 09:51 Bed 17 Private MD: ED Physician Kash Mosqueda HPI: 08/16 10:43 This 54 yrs old Female presents to ER via Ambulatory with complaints of ms3 Urinary Problem, Abdominal Pain. 10:43 54-year-old female past medical history of angina pectoris, depression, migraines, ms3 anxiety presents to the emergency department for right lower quadrant abdominal pain that has been ongoing for 1 and half years. Patient states the pain has become worse over the last week. Patient endorses intermittent fevers, chills, nausea, vomiting. Patient states her discomfort is a 6/10. Historical: - Allergies: 10:10 No Known Allergies; hb - Home Meds: 10:10 venlafaxine oral [Active]; Klonopin Oral [Active]; hb - PMHx: 10:10 angina pectoris; Depression; Migraines; Anxiety; hb - PSHx: 10:10 section; Cholecystectomy; hb - Immunization history:: Adult Immunizations up to date. - Infectious Disease History:: Denies. - Social history:: Smoking status: Patient reports the use of cigarette tobacco products, smokes one-half pack cigarettes per day. ROS: 10:43 Cardiovascular: Negative for chest pain, and palpitations. Respiratory: Negative for ms3 shortness of breath, cough, wheezing, and pleuritic chest pain, MS/Extremity: Negative for injury and deformity, 10:43 Constitutional: Positive for chills, fever, 10:43 Abdomen/GI: Positive for abdominal pain, nausea and vomiting, Exam: 10:43 Constitutional: This is a well developed, well nourished patient who is awake, alert, ms3 and in no acute distress. Cardiovascular: Regular rate and rhythm with a normal S1 and S2. No gallops, murmurs, or rubs. Normal PMI, no JVD. No pulse deficits. Respiratory: Lungs have equal breath sounds bilaterally, clear to auscultation and percussion. No rales, rhonchi or wheezes noted. No increased work of breathing, no retractions or nasal flaring. 10:43 Skin: Warm, dry with normal turgor. Normal color with no rashes, no lesions, and no evidence of cellulitis. MS/ Extremity: Pulses equal, no cyanosis. Neurovascular intact. Full, normal range of motion. 10:43 Abdomen/GI: Inspection: abdomen appears normal, Bowel sounds: normal, Palpation: mild abdominal tenderness, in the right lower quadrant, Vital Signs: 10:08 BP 132 / 86; Pulse 74; Resp 16; Temp 98.9(O); Pulse Ox 100% on R/A; Weight 70.31 kg; hb Height 5 ft. 0 in. ; Pain 7/10; 11:52 BP 154 / 90; Pulse 76; Resp 18; Pulse Ox 100% on R/A; Pain 8/10; ld1 13:12 BP 142 / 99; Pulse 78; Resp 18; Pulse Ox 100% on R/A; ld1 10:08 Body Mass Index 30.27 (70.31 kg, 152.4 cm) hb 10:08 Pain Scale: Adult hb 11:52 Pain Scale: Adult ld1 MDM: 10:42 Medical Screening Exam initiated ms3 10:43 Differential diagnosis: appendicitis, bowel obstruction, diverticulitis, non-specific ms3 abd pain. 13:15 Data reviewed: vital signs, nurses notes, lab test result(s), radiologic studies, and ms3 as a result, I will discharge patient. I considered the following discharge prescriptions or medication management in the emergency department See Rx. Counseling: I had a detailed discussion with the patient and/or guardian regarding the historical points, exam findings, and any diagnostic results supporting the discharge/admit diagnosis, lab results, radiology results, the need for outpatient follow up, to return to the emergency department if symptoms worsen or persist or if there are any questions or concerns that arise at home. ED course: Discussed UA with white blood cells and red blood cells present. 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 All questions were answered. Return precautions discussed include worsening symptoms, or any other concerns. Patient to follow-up Dr. Smith in 2 to 3 days. On reevaluation patient is alert and oriented x 4, no apparent distress, nontoxic-appearing, speaking full sentences, abdomen benign.. 08/16 10:09 Order name: CBC with Diff; Complete Time: 13:03 ms3 08/16 10:09 Order name: CMP; Complete Time: 13:03 ms3 08/16 10:09 Order name: UA Rfx Luan Cult if indicated; Complete Time: 13:03 ms3 08/16 11:05 Order name: Urine Culture EDMS 08/16 10:43 Order name: CT Abd/Pelvis - IV Contrast Only; Complete Time: 13:03 ms3 08/16 10:09 Order name: IV Saline Lock; Complete Time: 11:20 ms3 08/16 10:09 Order name: Labs collected and sent; Complete Time: 11:20 ms3 Administered Medications: No medications were administered Disposition Summary: 08/16/24 13:14 Discharge Ordered Notes: Location: Home ms3 Condition: Stable ms3 Diagnosis - UTI/ Urinary tract infection, site not specified ms3 - Elevated blood-pressure reading, without diagnosis of hypertension ms3 - Lower abdominal pain, unspecified ms3 Followup: ms3 - With: Abelino Smith DO - When: 2 - 3 days - Reason: Recheck today's complaints Discharge Instructions: - Discharge Summary Sheet ms3 - Abdominal Pain, Adult ms3 - Urinary Tract Infection, Adult, [id number] ms3 - Hypertension, Adult, [id number] ms3 Forms: - Medication Reconciliation Form ms3 - Antibiotic Education ms3 - Prescription Opioid Use ms3 - Patient Portal Instructions ms3 - Leadership Thank You Letter ms3 - Work release form ld1 Prescriptions: - cefpodoxime 100 mg Oral Tablet - take 1 tablet ORAL route every 12 hours for 10 days take with food; 20 tablet; ms3 Refills: 0, Product Selection Permitted Signatures: Dispatcher [employer] Roberta Jones, RN RN Kash Chapman DO DO ms3
--- NOTE | 2024-08-16 13:14 | ER ---
Nurse's Notes [facility] Name: Rosa Isela Resendiz Age: 54 yrs Sex: Female : 1970 Arrival Date: 08/16/2024 Time: 09:51 Bed 17 Private MD: Diagnosis: UTI/ Urinary tract infection, site not specified;Elevated blood-pressure reading, without diagnosis of hypertension;Lower abdominal pain, unspecified Presentation: 08/16 10:08 Chief complaint: Intermittent vaginal bleeding, right sided abdominal pain, and dysuria hb x 1 month. Pt is post menopausal. Coronavirus screen: At this time, the client does not indicate any symptoms associated with coronavirus-19. Ebola Screen: No symptoms or risks identified at this time. Initial Sepsis Screen: Does the patient meet any 2 criteria? No. Patient's initial sepsis screen is negative. Does the patient have a suspected source of infection? No. Patient's initial sepsis screen is negative. Risk Assessment: Do you want to hurt yourself or someone else? Patient reports no desire to harm self or others. Onset of symptoms was July 2024. 10:08 Method Of Arrival: Ambulatory hb 10:08 Acuity: MITCH 3 hb Triage Assessment: 11:33 General: Appears well nourished, Behavior is cooperative, anxious. Pain: Complains of km10 pain in abdomen and right lower quadrant Aggravated by urination. GI: Abdomen is non-distended, Reports lower abdominal pain, since 2-3 days. : Reports burning with urination, since 1 month. Historical: - Allergies: 10:10 No Known Allergies; hb - Home Meds: 10:10 venlafaxine oral [Active]; Klonopin Oral [Active]; hb - PMHx: 10:10 angina pectoris; Depression; Migraines; Anxiety; hb - PSHx: 10:10 section; Cholecystectomy; hb - Immunization history:: Adult Immunizations up to date. - Infectious Disease History:: Denies. - Social history:: Smoking status: Patient reports the use of cigarette tobacco products, smokes one-half pack cigarettes per day. Screenin:52 [facility] ED Fall Risk Assessment (Adult) History of falling in the last 3 months, ld1 including since admission No falls in past 3 months (0 pts) Confusion or Disorientation No (0 pts) Intoxicated or Sedated No (0 pts) Impaired Gait No (0 pts) Mobility Assist Device Used No (0 pt) Altered Elimination No (0 pt) Score/Fall Risk Level 0 - 2 = Low Risk Oriented to surroundings, Hourly rounding (assess needs \T\ fall precautionary measures) done. Abuse screen: Denies threats or abuse. Denies injuries from another. Nutritional screening: No deficits noted. Tuberculosis screening: No symptoms or risk factors identified. Assessment: 11:52 General: Appears in no apparent distress. comfortable, Behavior is cooperative, ld1 anxious. Pain: Complains of pain in right lower quadrant Pain does not radiate. Pain currently is 8 out of 10 on a pain scale. Quality of pain is described as throbbing, Pain began 2-3 days ago. Is continuous. Neuro: Level of Consciousness is awake, alert, obeys commands, Oriented to person, place, time, situation. Cardiovascular: Capillary refill < 3 seconds Patient's skin is warm and dry. Respiratory: Airway is patent Respiratory effort is even, unlabored. GI: Abdomen is round non-distended, Bowel sounds present X 4 quads. Abd is soft Abdomen is tender to palpation in right lower quadrant. : Reports burning with urination. EENT: No signs and/or symptoms were reported regarding the EENT system. Derm: No signs and/or symptoms reported regarding the dermatologic system. Musculoskeletal: No signs and/or symptoms reported regarding the musculoskeletal system. 13:12 Reassessment: Patient appears in no apparent distress at this time. No changes from ld1 previously documented assessment. Patient and/or family updated on plan of care and expected duration. Pain level reassessed. Patient is alert, oriented x 3, equal unlabored respirations, skin warm/dry/pink. Vital Signs: 10:08 BP 132 / 86; Pulse 74; Resp 16; Temp 98.9(O); Pulse Ox 100% on R/A; Weight 70.31 kg; hb Height 5 ft. 0 in. ; Pain 7/10; 11:52 BP 154 / 90; Pulse 76; Resp 18; Pulse Ox 100% on R/A; Pain 8/10; ld1 13:12 BP 142 / 99; Pulse 78; Resp 18; Pulse Ox 100% on R/A; ld1 10:08 Body Mass Index 30.27 (70.31 kg, 152.4 cm) hb 10:08 Pain Scale: Adult hb 11:52 Pain Scale: Adult ld1 ED Course: 09:55 Patient arrived in ED. gl 09:55 Kash Mosqueda DO is Attending Physician. ms3 10:10 Triage completed. hb 10:11 Arm band placed on. hb 11:12 Urine Culture Sent. hb 11:18 Kristal Mosqueda, RN is Primary Nurse. ld1 11:20 Inserted saline lock: 20 gauge in left antecubital area, using aseptic technique. Blood ld1 collected. Flushed with 10 mL NS. 11:49 CT Abd/Pelvis - IV Contrast Only In Process Unspecified. EDMS 11:52 Patient has correct armband on for positive identification. Placed in gown. Bed in low ld1 position. Call light in reach. Side rails up X2. Pulse ox on. NIBP on. Door closed. Noise minimized. Warm blanket given. 11:52 No provider procedures requiring assistance completed. ld1 13:14 Abelino Smith DO is Referral Physician. ms3 13:25 IV discontinued, intact, bleeding controlled, No redness/swelling at site. ld1 Administered Medications: No medications were administered Medication: 11:52 VIS not applicable for this client. ld1 Outcome: 13:14 Discharge ordered by MD. ms3 13:25 Discharged to home ambulatory, ld1 13:25 Condition: stable 13:25 Discharge instructions given to patient, Instructed on discharge instructions, follow up and referral plans. medication usage, Demonstrated understanding of instructions, follow-up care, medications, Prescriptions given X 1, 13:25 Patient left the ED. ld1 Signatures: Dispatcher [employer] EDNM Roberta Heart RN RN Kash Mosqueda DO DO ms3 Kristal Mosqueda, RN RN ld1 Melisa Rodas, Reg Reg gl Danielle Ricks RN RN km10 Corrections: (The following items were deleted from the chart) 12:44 11:33 : Reports burning with urination, since 1 week km10 km10 12:45 11:33 GI: Abdomen is non-distended, Reports lower abdominal pain, km10 km10
[2024-08-16 13:32] VITALS: TEMP 98.9; O2SAT 100
[2024-08-16 13:35] VITALS: BP 142/99
== END 2024-08-16 13:25 | disposition home or self-care (01) ==
LOC: ER 09:51
DX: N39.0 Urinary tract infection, site not specified (principal); R03.0 Elevated blood-pressure reading, without diagnosis of hypertension
CPT/HCPCS: 36415; 74177; 80053; 81001; 85025; 87086; 87088; 99284; Q9967